=== PATIENT | female | born 2000 | race Hispanic/Latino ===

== ENCOUNTER 2024-12-03 02:50 | Inpatient (IN) | payer SELFPAY ==
[2024-12-03] VITALS (72 sets, daily range): BP systolic 109–146; BP diastolic 55–89; PULSE 72–96; RESP 16–18; TEMP 36.2–36.9; O2SAT 88–98; BMI 36.1
--- OUTSIDE RECORDS SUMMARY | 2024-12-03 02:58 | XMS RPT_ITS | CCD ---
Author Organization [facility] Care Team Providers Care Interior Design Instructor Name Role Phone Unavailable Primary Care Provider CELIA Briseno Attending Unavailable JACKIE BELTRÁN Referring Unavailable PLOTTS, SHAKILA Referring Unavailable JACQUELYN STEWART Attending Unavailable PLOTTS, SHAKILA Referring Unavailable PLOTTS, SHAKILA Referring Unavailable RUBÉNCELIA TITUS Attending Unavailable SUSAN, JACKIE Attending Unavailable NELUZ HENAO Referring Unavail able PLOTTS, SHAKILA Attending Unavailable NEYBILLT LUZ LYN Attending Unavail able PLOTTS, SHAKILA Referring Unavailable PLOTTS, SHAKILA Attending Unavailable SELF Referring Unavailable JACKIE BELTRÁN Attending Unavailable RUBÉN, CELIA Attending Unavailable Medications Current Medications Medication Drug Class(es) Dates Sig (Normalized) Sig (Original) ferrous sulfate 325 mg oral tablet (11 sources) Start: 09-10-2024 End: 04-26-2025 take 1 tablet by mouth once daily ferrous sulfate 325 mg (65 mg iron) tablet Indications: Anemia complicating , second trimester (HCC) Take 1 tablet by mouth once daily. 30 tablet 2024 04/26/2025 Active Start: 09-03-2022 End: 08-27-2024 take 1 tablet by mouth once daily at breakfast ferrous sulfate 325 mg (65 mg iron) tablet Indications: Mild anemia Take 1 tablet by mouth daily with breakfast. 30 tablet 11 09/03/2022 08/27/2024 Discontinued multivitamin ( VITAMIN WITH MINERALS) 28 mg iron- 800 mcg tab (13 sources) Start: 2024 take 1 tablet by mouth once daily multivitamin ( VITAMIN WITH MINERALS) 28 mg iron- 800 mcg tab Take 1 tablet by mouth once daily. 30 tablet 11 2024 Active Start: 08-27-2024 End: 2024 take 1 tablet by mouth once daily multivitamin ( VITAMIN WITH MINERALS) 28 mg iron- 800 mcg tab Take 1 tablet by mouth once daily. 30 tablet 11 08/27/2024 2024 Discontinued Start: 08-27-2024 take 1 tablet by michela th once daily multivitamin ( VITAMIN WITH MINERALS) 28 mg iron- 800 mcg tab Take 1 tablet by mouth once daily. 30 tablet 11 08/27/2024 Active Start: 10-17-2022 End: 08-27-2024 take 1 tablet by mouth once daily multivitamin ( VITAMIN WITH MINERALS) 28 mg iron- 800 mcg tab Indications: 13 weeks gestation of (HCC) Take 1 tablet by mouth once daily. 30 tablet 11 10/17/2022 08/27/2024 Discontinued Completed/Discontinued Medications Medication Drug Class(es) Dates Sig (Normalized) Sig (Original) aspirin 81 mg delayed release oral tablet (6 sources) Platelet Aggregation Inhibitor, Nonsteroidal Anti-inflammatory Drug Start: 08-27-2024 End: 09-23-2024 take 1 tablet by mouth once daily aspirin, enteric coated (ECOTRIN LOW STRENGTH) 81 mg EC tablet Indications: with uncertain dates, second trimester (HCC) Take 1 tablet by mouth once daily. 90 tablet 3 08/27/2024 09/23/2024 Discontinued (Discontinued by Patient) Ethinyl Estradiol / norgestimate (1 source) Progestin, Estrogen Start: 08-07-2023 End: 08-27-2024 take 1 tablet by mouth once daily norgestimate 0.25 mg-ethinyl estradiol 35 mcg (SPRINTEC) 0.25-35 mg-mcg per tablet Indications: Oral contraceptive use Take 1 tablet by mouth once daily. 84 tablet 3 08/07/2023 08/27/2024 Discontinued (Discontinued by Patient) ibuprofen 600 mg oral tablet (1 source) Nonsteroidal Anti-inflammatory Drug Start: 12-20-2022 End: 08-27-2024 take 1 tablet by mouth every six hours as needed ibuprofen (MOTRIN) 600 mg tablet Take 1 tablet by mouth every 6 hours as needed for pain. 90 tablet 12/20/2022 08/27/2024 Discontinued (Discontinued by Patient) Problems Active Problems Problem Classification Problem Date Documented Da te Episodic/Chronic Anxiety disorders (16 sources) Mixed anxiety and depressive disorder; Translations: [Anxiety disorder, unspecified] Onset: 08-27-2024 08-27-2024 Chronic Diabetes or abnormal glucose tolerance complicating ; childbirth; or the puerperium (14 sources) Impaired glucose tolerance in ; Translations: [Abnormal glucose complicating ] Onset: 09-23-2024 09-23-2024 Episodic Immunizations and screening for infectious disease (2 sources) Vaccination needed; Translations: [Encounter for immunization] Onset: 09-23-2024 09-23-2024 Episodic Mood disorders (1 source) Mood disorders; Translations: [Anxiety and depression] Onset: 08-27-2024 Other complications of (18 sources) Anemia in mother complicating , childbirth AND/OR puerperium; Translations: [Anemia complicating , second trimester] Onset: 09-02-2024 09-10-2024 Chronic Other complications of (1 source) Anemia complicating , third trimester; Translations: [Anemia during in third trimester (HCC)] Onset: 10-14-2024 Chronic Other complications of (1 source) Anemia complicating , second trimester; Translations: [Anemia complicating , second trimester (HCC)] Onset: 09-02-2024 Chronic Other complications of (1 source) Supervision of high risk , unspecified, third trimester; Translations: [Supervision of high risk in third trimester (HCC)] Onset: 11-11-2024 Episodic Other complications of (1 source) Supervision of high risk , unspecified, second trimester; Translations: [Encounter for supervision of high risk in second trimester, antepartum (HCC)] Onset: 10-14-2024 Episodic Other screening for suspected conditions (not mental disorders or infectious disease) (2 sources) Patient encounter status; Translations: [Encounter for screening for diabetes mellitus] Onset: 09-23-2024 09-10-2024 Episodic Residual codes; unclassified (1 source) Gestation period, 24 weeks; Translations: [24 weeks gestation of ] 08-27-2024 Episodic Residual codes; unclassified (1 source) Gestation period, 26 weeks; Translations: [26 weeks gestation of ] 09-10-2024 Episodic Residual codes; unclassified (1 source) Gestation period, 31 weeks; Translations: [31 weeks gestation of ] 09-23-2024 Episodic Residual codes; unclassified (1 source) Gestation period, 33 weeks; Translations: [33 weeks gestation of ] 10-07-2024 Episodic Residual codes; unclassified (1 source) Gestation period, 36 weeks; Translations: [36 weeks gestation of ] 2024 Episodic Residual codes; unclassified (1 source) Gestation period, 38 weeks; Translations: [38 weeks gestation of ] 11-11-2024 Episodic Residual codes; unclassified (1 source) Gestation period, 39 weeks; Translations: [39 weeks gestation of ] 11-19-2024 Episodic Residual codes; unclassified (1 source) 40 weeks gestation of ; Translations: [40 weeks gestation of (HCC)] Onset: 11-26-2024 Episodic Residual codes; unclassified (1 source) 39 weeks gestation of ; Translations: [39 weeks gestation of (HCC)] Onset: 11-19-2024 Episodic Residual codes; unclassified (1 source) 38 weeks gestation of ; Translations: [38 weeks gestation of (HCC)] Onset: 11-11-2024 Episodic Residual codes; unclassified (1 source) 36 weeks gestation of ; Translations: [36 weeks gestation of (HCC)] Onset: 2024 Episodic Residual codes; unclassified (1 source) 31 weeks gestation of ; Translations: [31 weeks gestation of (HCC)] Onset: 09-23-2024 Episodic Residual codes; unclassified (1 source) 26 weeks gestation of ; Translations: [26 weeks gestation of (HCC)] Onset: 09-10-2024 Episodic Unclassified (1 source) Care Onset: 10-07-2024 Past or Other Problems Problem Classification Problem Date Documented Da te Episodic/Chronic Administrative/social admission (20 sources) Language barrier impedes ability to use community resources; Translations: [Acculturation difficulty] Onset: 10-01-2022 08-27-2024 Episodic Early or threatened labor (13 sources) False labor; Translations: [False labor, unspecified] Onset: 12-17-2022 Resolved: 08-27-2024 08-27-2024 Episodic Other complications of (16 sources) Anemia of ; Translations: [Anemia complicating , third trimester] Onset: 09-23-2024 Resolved: 10-14-2024 09-23-2024 Chronic Other complications of (18 sources) Late entry into care; Translations: [Supervision of with insufficient care, unspecified trimester] Onset: 08-27-2024 08-27-2024 Episodic Other complications of (14 sources) Uterine size for dates discrepancy; Translations: [Uterine size-date discrepancy, second trimester] Onset: 08-27-2024 08-27-2024 Episodic Other complications of (20 sources) High risk ; Translations: [Supervision of high risk , unspecified, second trimester] Onset: 08-27-2024 08-27-2024 Episodic Other complications of (13 sources) Abdominal pain in ; Translations: [Other specified related conditions, third trimester] Onset: 12-17-2022 Resolved: 12-20-2022 12-20-2022 Episodic Other complications of (1 source) Supervision of with insufficient care, unspecified trimester; Translations: [Late care ([facility])] Onset: 08-27-2024 Episodic Other and delivery including normal (19 sources) with uncertain dates; Translations: [Encounter for supervision of normal , unspecified, second trimester] Onset: 10-01-2022 Resolved: 08-27-2024 08-27-2024 Episodic Residual codes; unclassified (13 sources) Gestation period, 40 weeks; Translations: [40 weeks gestation of ] Onset: 12-17-2022 Resolved: 12-20-2022 12-20-2022 Episodic Residual codes; unclassified (1 source) 13 weeks gestation of ; Translations: [13 weeks gestation of ([facility])] Onset: 08-27-2024 Episodic Results Test Name Value Interpretation Reference Range Facil cadencey Genaro 11-25-2024 MICHAEL Telephone (OBGYWM) MIS DOMINGUEZ ([id number]) 1 F HELENA Date Time Provider Department 11/25/24 SHAKILA MORALES During your visit today, we recorded the following information about you: Changcalista DorysMIGUEL 11/25/2024 2:53 PM Signed Ob patient is 40w3d called using an conciliator c/o 8 out 10 lower back and abdominal pain with pelvic pressure, Denies LOF, no VB. Baby is active. Discussed with Franko Morales and patient was advised to go to [facility]. Patient told nurse that she is not able to go to [facility] d/t lack of transportation and is out of town for work until tomorrow. Patient stated that she would have to call a squad and go to [facility] in [place] but wanted to wait d/t having child home w/ her and family to help. Allergies As of Date: 11/25/2024 (No Known Allergies) Date Reviewed: 11/19/2024 Reviewed by: Celia Boss MD - Fully Assessed Reason for Visit: Care [86] Prescriptions as of 11/25/2024 - ferrous sulfate 325 mg (65 mg iron) tablet Take 1 tablet by mouth once daily. - multivitamin ( VITAMIN WITH MINERALS) 28 mg iron- 800 mcg tab Take 1 tablet by mouth once daily. Problem List As Of Date 11/25/2024 Noted Resolved Language barrier [Z60.3, Z75.8] 10/01/2022 Encounter for supervision of normal first pregn*10/01/2022 08/27/2024 40 weeks gestation of [Z3A.40] 12/17/2022 12/20/2022 Abdominal pain in , third trimester [O*12/17/2022 12/20/2022 Labor, false ([place]), antepartum (HCC) *12/17/2022 08/27/2024 Late care (HCC) [O09.30] 08/27/2024 Uterine size-date discrepancy, second trimester*08/27/2024 Encounter for supervision of high risk pregnanc*08/27/2024 Anxiety and depression [F41.9, F32.A] 08/27/2024 Anemia complicating , second trimester*09/02/2024 Abnormal glucose in , antepartum (HCC)*09/23/2024 Anemia during in third trimester (HCC*09/23/2024 10/14/2024 Encounter Status:Closed by JANN GOMEZ on 11/25/[address] [facility] URINE OB DIP B/Oon 5 Glucose Ql (U) Negative Neg mg/dL [facility] Protein.monoclonal (U) [Mass/Vol] 100 mg/dL Neg [facility] URINE OB DIP B/Oon 5 Glucose Ql (U) Negative Neg mg/dL [facility] Interpretation and review of laboratory results Abnormal [facility] Protein.monoclonal (U) [Mass/Vol] 300 mg/dL Neg [facility] CBC W Auto Differential pane l (Bld)on 2024 Basophils (Bld) [#/Vol] 0.03 10*3/[facility]L [facility] Basophils/100 WBC (Bld) 0.4 % [facility] Differential cell count method Nom (Bld) Auto [facility] Eosinophils (Bld) [#/Vol] 0.08 10*3/uL [facility] Eosinophils/100 WBC (Bld) 1.2 % [facility] Erythrocyte distribution width (RBC) [Ratio] 14.1 % 11.5 - 15.0 % [facility] Hematocrit (Bld) [Volume fraction] 31.7 % Low 36.0 - 46.0 % [facility] Hemoglobin (Bld) [Mass/Vol] 10.9 g/dL Low 11.5 - 15.5 g/dL [facility] Immature granulocytes (Bld) [#/Vol] 0.07 10*3/uL [facility] Immature granulocytes/100 WBC (Bld) 1 % [facility] Interpretation and review of laboratory results Abnormal [facility] Lymphocytes (Bld) [#/Vol] 1.46 10*3/uL [facility] Lymphocytes/100 WBC (Bld) 21.3 % [facility] MCH (RBC) [Entitic mass] 28.5 pg 26.0 - 34.0 pg [facility] MCHC (RBC) [Mass/Vol] 34.4 g/dL 30.5 - 36.0 g/dL [facility] MCV (RBC) [Entitic vol] 82.8 fL 80.0 - 100.0 fL [facility] Monocytes (Bld) [#/Vol] 0.54 10*3/uL [facility] Monocytes/100 WBC (Bld) 7.9 % [facility] Neutrophils (Bld) [#/Vol] 4.68 10*3/uL [facility] Neutrophils/100 WBC (Bld) 68.2 % [facility] Nucleated RBC (Bld) [#/Vol] NINF [facility] Nucleated RBC/100 WBC (Bld) [Ratio] 0 % /100 WBC [facility] Platelet mean volume (Bld) [Entitic vol] 10.2 fL 9.0 - 12.7 fL [facility] Platelets (Bld) [#/Vol] 195 10*3/uL [facility] RBC (Bld) [#/Vol] 3.83 10*6/uL Low 3.90 - 5.20 m/uL [facility] WBC (Bld) [#/Vol] 6.86 10*3/uL [facility] Basophils (Bld) [#/Vol] 0.03 10*3/uL Normal <0.11 [facility] Comment on above: Order Comment: Speci men Type: BLOOD SPECIMEN Ordering Facility: [facility] Address: [address] [place] [address] Performed By: #### 5 0190-8, 6-4 #### [facility] CLIA [id number] [address] [place] [address] [place] Basophils/100 WBC (Bld) 0.4 % Normal [facility] Comment on above: Order Comment: Speci men Type: BLOOD SPECIMEN Ordering Facility: [facility] Address: [address] [place] [address] Performed By: #### 5 0190-8, 6-4 #### [facility] CLIA [id number] [address] [place] [address] [place] Differential cell count method Nom (Bld) Auto Normal [facility] Comment on above: Order Comment: Speci men Type: BLOOD SPECIMEN Ordering Facility: [facility] Address: [address] [place] [address] Performed By: #### 5 0190-8, 2275- #### [facility] CLIA [id number] [address] [place] [address] [place] Eosinophils (Bld) [#/Vol] 0.08 10*3/uL Normal <0.46 [facility] Comment on above: Order Comment: Speci men Type: BLOOD SPECIMEN Ordering Facility: [facility] Address: [address] [place] [address] Performed By: #### 5 0190-8, 2275-07 #### [facility] CLIA [id number] [address] [place] [address] [place] Eosinophils/100 WBC (Bld) 1.2 % Normal [facility] Comment on above: Order Comment: Speci men Type: BLOOD SPECIMEN Ordering Facility: [facility] Address: [address] [place] [address] Performed By: #### 5 0190-8, 2275-07 #### [facility] CLIA [id number] [address] [place] [address] [place] Erythrocyte distribution width (RBC) [Ratio] 14.1 % Normal 11.5-15.0 [facility] Comment on above: Order Comment: Speci men Type: BLOOD SPECIMEN Ordering Facility: [facility] Address: [address] [place] [address] Performed By: #### 5 0190-8, 2275-07 #### [facility] CLIA [id number] [address] [place] [address] [place] Hematocrit (Bld) [Volume fraction] 31.7 % Low 36.0-46.0 [facility] Comment on above: Order Comment: Speci men Type: BLOOD SPECIMEN Ordering Facility: [facility] Address: [address] [place] [address] Performed By: #### 5 0190-8, 2275-07 #### [facility] CLIA [id number] [address] [place] [address] [place] Hemoglobin (Bld) [Mass/Vol] 10.9 g/dL Low 11.5-15.5 [facility] Comment on above: Order Comment: Speci men Type: BLOOD SPECIMEN Ordering Facility: [facility] Address: [address] [place] [address] Performed By: #### 5 0190-8, 2275-07 #### [facility] CLIA [id number] [address] [place] [address] [place] Immature granulocytes (Bld) [#/Vol] 0.07 10*3/uL Normal <0.10 [facility] Comment on above: Order Comment: Speci men Type: BLOOD SPECIMEN Ordering Facility: [facility] Address: [address] [place] [address] Performed By: #### 5 0190-8, 2275-07 #### [facility] CLIA [id number] [address] [place] [address] [place] Immature granulocytes/100 WBC (Bld) 1.0 % Normal [facility] Comment on above: Order Comment: Speci men Type: BLOOD SPECIMEN Ordering Facility: [facility] Address: [address] [place] [address] Performed By: #### 5 0190-8, 2275-07 #### [facility] CLIA [id number] [address] [place] [address] [place] Lymphocytes (Bld) [#/Vol] 1.46 10*3/uL Normal 1.00-4.00 [facility] Comment on above: Order Comment: Speci men Type: BLOOD SPECIMEN Ordering Facility: [facility] Address: [address] [place] [address] Performed By: #### 5 0190-8, 2275-07 #### [facility] CLIA [id number] [address] [place] [address] [place] Lymphocytes/100 WBC (Bld) 21.3 % Normal [facility] Comment on above: Order Comment: Speci men Type: BLOOD SPECIMEN Ordering Facility: [facility] Address: [address] [place] [address] Performed By: #### 5 0190-8, 2275-4 #### [facility] CLIA [id number] [address] [place] [address] [place] MCH (RBC) [Entitic mass] 28.5 pg Normal 26.0-34.0 [facility] Comment on above: Order Comment: Speci men Type: BLOOD SPECIMEN Ordering Facility: [facility] Address: [address] [place] [address] Performed By: #### 5 0190-8, 2275-07 #### [facility] CLIA [id number] [address] [place] [address] [place] MCHC (RBC) [Mass/Vol] 34.4 g/dL Normal 30.5-36.0 [facility] Comment on above: Order Comment: Speci men Type: BLOOD SPECIMEN Ordering Facility: [facility] Address: [address] [place] [address] Performed By: #### 5 0190-8, 2275-07 #### [facility] CLIA [id number] [address] [place] [address] [place] MCV (RBC) [Entitic vol] 82.8 fL Normal 80.0-100.0 [facility] Comment on above: Order Comment: Speci men Type: BLOOD SPECIMEN Ordering Facility: [facility] Address: [address] [place] [address] Performed By: #### 5 0190-8, 2275-07 #### [facility] CLIA [id number] [address] [place] [address] [place] Monocytes (Bld) [#/Vol] 0.54 10*3/uL Normal <0.87 [facility] Comment on above: Order Comment: Speci men Type: BLOOD SPECIMEN Ordering Facility: [facility] Address: [address] [place] [address] Performed By: #### 5 0190-8, 2275-4 #### [facility] CLIA [id number] [address] [place] [address] [place] Monocytes/100 WBC (Bld) 7.9 % Normal [facility] Comment on above: Order Comment: Speci men Type: BLOOD SPECIMEN Ordering Facility: [facility] Address: [address] [place] [address] Performed By: #### 5 0190-8, 2275-4 #### [facility] CLIA [id number] [address] [place] [address] [place] Neutrophils (Bld) [#/Vol] 4.68 10*3/uL Normal 1.45-7.50 [facility] Comment on above: Order Comment: Speci men Type: BLOOD SPECIMEN Ordering Facility: [facility] Address: [address] [place] [address] Performed By: #### 5 0190-8, 2275-07 #### [facility] CLIA [id number] [address] [place] [address] [place] Neutrophils/100 WBC (Bld) 68.2 % Normal [facility] Comment on above: Order Comment: Speci men Type: BLOOD SPECIMEN Ordering Facility: [facility] Address: [address] [place] [address] Performed By: #### 5 0190-8, 2275-4 #### [facility] CLIA [id number] [address] [place] [address] [place] Nucleated RBC (Bld) [#/Vol] 10*3/uL Normal <0.01 [facility] Comment on above: Order Comment: Speci men Type: BLOOD SPECIMEN Ordering Facility: [facility] Address: [address] [place] [address] Performed By: #### 5 0190-8, 2275- #### [facility] CLIA [id number] [address] [place] [address] [place] Nucleated RBC/100 WBC (Bld) [Ratio] 0.0 /[address] [facility] Comment on above: Order Comment: Speci men Type: BLOOD SPECIMEN Ordering Facility: [facility] Address: [address] [place] [address] Performed By: #### 5 0190-8, 2275-07 #### [facility] CLIA [id number] [address] [place] [address] [place] Platelet mean volume (Bld) [Entitic vol] 10.2 fL Normal 9.0-12.7 [facility] Comment on above: Order Comment: Speci men Type: BLOOD SPECIMEN Ordering Facility: [facility] Address: [address] [place] [address] Performed By: #### 5 0190-8, 2275-07 #### [facility] CLIA [id number] [address] [place] [address] [place] Platelets (Bld) [#/Vol] 195 10*3/uL Normal 150-400 [facility] Comment on above: Order Comment: Speci men Type: BLOOD SPECIMEN Ordering Facility: [facility] Address: [address] [place] [address] Performed By: #### 5 0190-8, 2275-07 #### [facility] CLIA [id number] [address] [place] [address] [place] RBC (Bld) [#/Vol] 3.83 10*6/uL Low 3.90-5.20 [facility] Comment on above: Order Comment: Speci men Type: BLOOD SPECIMEN Ordering Facility: [facility] Address: [address] [place] [address] Performed By: #### 5 0190-8, 2275-07 #### [facility] CLIA [id number] [address] [place] [address] [place] WBC (Bld) [#/Vol] 6.86 10*3/uL Normal 3.70-11.00 [facility] Comment on above: Order Comment: Speci men Type: BLOOD SPECIMEN Ordering Facility: [facility] Address: [address] [place] [address] Performed By: #### 5 0190-8, 2275-07 #### [facility] CLIA [id number] [address] [place] [address] [place] Ferritin SerPl-ncon 2024 Ferritin [Mass/Vol] 36.2 ng/mL Normal 14.7-205.1 [facility] Comment on above: Order Comment: Speci men Type: BLOOD SPECIMEN Ordering Facility: [facility] Address: [address] [place] [address] Performed By: #### 5 0190-8, 2275-07 #### [facility] CLIA [id number] [address] [place] [address] [place] Iron and Iron binding capaci panelon 2024 Iron [Mass/Vol] 78 ug/dL Normal 41-186 [facility] Comment on above: Order Comment: Speci men Type: BLOOD SPECIMEN Ordering Facility: [facility] Address: [address] [place] [address] Performed By: #### 5 0190-8, 2275-07 #### [facility] CLIA [id number] [address] [place] [address] [place] Iron binding capacity [Mass/Vol] 403 ug/dL High 232-386 [facility] Comment on above: Order Comment: Speci men Type: BLOOD SPECIMEN Ordering Facility: [facility] Address: [address] [place] [address] Performed By: #### 5 0190-8, 2276-4 #### [facility] CLIA [id number] [address] [place] [address] [place] Iron/TIBC [Molar ratio] 19.4 % Normal 15.0-57.0 [facility] Comment on above: Order Comment: Speci men Type: BLOOD SPECIMEN Ordering Facility: [facility] Address: [address] [place] [address] Performed By: #### 5 0190-8, 2275-4 #### [facility] CLIA [id number] [address] [place] [address] [place] ROUTINE, GROUP B ST REPTOCOCCUS BY PCRon 2024 ROUTINE, GROUP B STREPTOCOCCUS BY PCR Detected Abnormal [facility] Comment on above: Performed By: #### 5 0190-8, 2275- #### [facility] CLIA [id number] [address] [place] [address] [place] URINE OB DIP B/Oon Glucose Ql (U) Negative Neg mg/dL [facility] Interpretation and review of laboratory results Normal [facility] Protein.monoclonal (U) [Mass/Vol] 100 mg/dL Neg [facility] Examination level ultrasound on 10-14-2024 [facility] Study observation (narrative) [facility] GLUCOSE GESTATIONAL, 1 HOURo n 09-26-2024 Glucose 1 Hr post Unsp challenge [Mass/Vol] 132 mg/dL Normal 74-179 [facility] Comment on above: Order Comment: Speci men Type: BLOOD SPECIMEN Ordering Facility: [facility] Address: [address] [place] [address] Result Comment: [facility] Congress of Obstetricians and Gynecologists (Neftali/Chanel) guidelines state gestational diabetes mellitus is present when 2 or more of the plasma glucose concentrations meet or exceed the following levels: fastin mg/dl, 1 hr: 180 mg/dl, 2 hr: 155 mg/dl, and 3 hr: 140 mg/dl. Performed By: #### G TGST1 #### [facility] CLIA [id number] [address] [place] [address] [place] GLUCOSE GESTATIONAL, 2 HOURo n 09-26-2024 Glucose 2 Hr post Unsp challenge [Mass/Vol] 93 mg/dL Normal 74-154 [facility] Comment on above: Order Comment: Jajyay hooper Type: BLOOD SPECIMEN Ordering Facility: [facility] Address: [address] [place] [address] Result Comment: [facility] Congress of Obstetricians and Gynecologists (Lindsay/Coustan) guidelines state gestational diabetes mellitus is present when 2 or more of the plasma glucose concentrations meet or exceed the following levels: fastin mg/dl, 1 hr: 180 mg/dl, 2 hr: 155 mg/dl, and 3 hr: 140 mg/dl. Performed By: #### 5 0190-8, 2276-4 #### [facility] IA [id number] [address] [place] [address] [place] GLUCOSE GESTATIONAL, 3 HOURo n 09-26-2024 Glucose 3 Hr post Unsp challenge [Mass/Vol] 81 mg/dL Normal 74-139 [facility] Comment on above: Order Comment: Jayjay hooper Type: BLOOD SPECIMEN Ordering Facility: [facility] Address: [address] [place] [address] Result Comment: [facility] Congress of Obstetricians and Gynecologists (Lindsay/Chantelstan) guidelines state gestational diabetes mellitus is present when 2 or more of the plasma glucose concentrations meet or exceed the following levels: fastin mg/dl, 1 hr: 180 mg/dl, 2 hr: 155 mg/dl, and 3 hr: 140 mg/dl. Performed By: #### 5 0190-8, 2276-4 #### [facility] CLIA [id number] [address] [place] [address] [place] GLUCOSE GESTATIONAL, FASTING on 09-26-2024 Glucose post fast [Mass/Vol] 79 mg/dL Normal 74-94 [facility] Comment on above: Order Comment: Jayjay hooper Type: BLOOD SPECIMEN Ordering Facility: [facility] Address: [address] [place] [address] Result Comment: [facility] Congress of Obstetricians and Gynecologists (Neftail/Chanel) guidelines state gestational diabetes mellitus is present when 2 or more of the plasma glucose concentrations meet or exceed the following levels: fastin mg/dl, 1 hr: 180 mg/dl, 2 hr: 155 mg/dl, and 3 hr: 140 mg/dl. Performed By: #### 5 0190-8, 2275- #### [facility] CLIA [id number] [address] [place] [address] [place] CBC W Auto Differential pane l (Bld)on 09-23-2024 Basophils (Bld) [#/Vol] 0.03 10*3/uL Normal <0.11 [facility] Comment on above: Order Comment: Speci men Type: BLOOD SPECIMEN Ordering Facility: [facility] Address: [address] [place] [address] Performed By: #### 5 0190-8, 2275-07 #### [facility] CLIA [id number] [address] [place] [address] [place] Basophils/100 WBC (Bld) 0.4 % Normal [facility] Comment on above: Order Comment: Speci men Type: BLOOD SPECIMEN Ordering Facility: [facility] Address: [address] [place] [address] Performed By: #### 5 0190-8, 2275-07 #### [facility] CLIA [id number] [address] [place] [address] [place] Differential cell count method Nom (Bld) Auto Normal [facility] Comment on above: Order Comment: Speci men Type: BLOOD SPECIMEN Ordering Facility: [facility] Address: [address] [place] [address] Performed By: #### 5 0190-8, 2275-07 #### [facility] CLIA [id number] [address] [place] [address] [place] Eosinophils (Bld) [#/Vol] 0.14 10*3/uL Normal <0.46 [facility] Comment on above: Order Comment: Speci men Type: BLOOD SPECIMEN Ordering Facility: [facility] Address: [address] [place] [address] Performed By: #### 5 0190-8, 2275-07 #### [facility] CLIA [id number] [address] [place] [address] [place] Eosinophils/100 WBC (Bld) 1.7 % Normal [facility] Comment on above: Order Comment: Speci men Type: BLOOD SPECIMEN Ordering Facility: [facility] Address: [address] [place] [address] Performed By: #### 5 0190-8, 2275-07 #### [facility] CLIA [id number] [address] [place] [address] [place] Erythrocyte distribution width (RBC) [Ratio] 14.0 % Normal 11.5-15.0 [facility] Comment on above: Order Comment: Speci men Type: BLOOD SPECIMEN Ordering Facility: [facility] Address: [address] [place] [address] Performed By: #### 5 0190-8, 2275-07 #### [facility] CLIA [id number] [address] [place] [address] [place] Hematocrit (Bld) [Volume fraction] 30.1 % Low 36.0-46.0 [facility] Comment on above: Order Comment: Speci men Type: BLOOD SPECIMEN Ordering Facility: [facility] Address: [address] [place] [address] Performed By: #### 5 0190-8, 2275-07 #### [facility] CLIA [id number] [address] [place] [address] [place] Hemoglobin (Bld) [Mass/Vol] 10.3 g/dL Low 11.5-15.5 [facility] Comment on above: Order Comment: Speci men Type: BLOOD SPECIMEN Ordering Facility: [facility] Address: [address] [place] [address] Performed By: #### 5 0190-8, 6-4 #### [facility] CLIA [id number] [address] [place] [address] [place] Immature granulocytes (Bld) [#/Vol] 0.10 10*3/uL High <0.10 [facility] Comment on above: Order Comment: Speci men Type: BLOOD SPECIMEN Ordering Facility: [facility] Address: [address] [place] [address] Performed By: #### 5 0190-8, 2275-4 #### [facility] CLIA [id number] [address] [place] [address] [place] Immature granulocytes/100 WBC (Bld) 1.2 % Normal [facility] Comment on above: Order Comment: Speci men Type: BLOOD SPECIMEN Ordering Facility: [facility] Address: [address] [place] [address] Performed By: #### 5 0190-8, 2275-4 #### [facility] CLIA [id number] [address] [place] [address] [place] Lymphocytes (Bld) [#/Vol] 2.28 10*3/uL Normal 1.00-4.00 [facility] Comment on above: Order Comment: Speci men Type: BLOOD SPECIMEN Ordering Facility: [facility] Address: [address] [place] [address] Performed By: #### 5 0190-8, 2275-4 #### [facility] CLIA [id number] [address] [place] [address] [place] Lymphocytes/100 WBC (Bld) 28.1 % Normal [facility] Comment on above: Order Comment: Speci men Type: BLOOD SPECIMEN Ordering Facility: [facility] Address: [address] [place] [address] Performed By: #### 5 0190-8, 2275-07 #### [facility] CLIA [id number] [address] [place] [address] [place] MCH (RBC) [Entitic mass] 28.4 pg Normal 26.0-34.0 [facility] Comment on above: Order Comment: Speci men Type: BLOOD SPECIMEN Ordering Facility: [facility] Address: [address] [place] [address] Performed By: #### 5 0190-8, 2275-07 #### [facility] CLIA [id number] [address] [place] [address] [place] MCHC (RBC) [Mass/Vol] 34.2 g/dL Normal 30.5-36.0 [facility] Comment on above: Order Comment: Speci men Type: BLOOD SPECIMEN Ordering Facility: [facility] Address: [address] [place] [address] Performed By: #### 5 0190-8, 2275-07 #### [facility] CLIA [id number] [address] [place] [address] [place] MCV (RBC) [Entitic vol] 82.9 fL Normal 80.0-100.0 [facility] Comment on above: Order Comment: Speci men Type: BLOOD SPECIMEN Ordering Facility: [facility] Address: [address] [place] [address] Performed By: #### 5 0190-8, 2275-07 #### [facility] CLIA [id number] [address] [place] [address] [place] Monocytes (Bld) [#/Vol] 0.58 10*3/uL Normal <0.87 [facility] Comment on above: Order Comment: Speci men Type: BLOOD SPECIMEN Ordering Facility: [facility] Address: [address] [place] [address] Performed By: #### 5 0190-8, 2275-07 #### [facility] CLIA [id number] [address] [place] [address] [place] Monocytes/100 WBC (Bld) 7.2 % Normal [facility] Comment on above: Order Comment: Speci men Type: BLOOD SPECIMEN Ordering Facility: [facility] Address: [address] [place] [address] Performed By: #### 5 0190-8, 2275-4 #### [facility] CLIA [id number] [address] [place] [address] [place] Neutrophils (Bld) [#/Vol] 4.97 10*3/uL Normal 1.45-7.50 [facility] Comment on above: Order Comment: Speci men Type: BLOOD SPECIMEN Ordering Facility: [facility] Address: [address] [place] [address] Performed By: #### 5 0190-8, 2275-4 #### [facility] CLIA [id number] [address] [place] [address] [place] Neutrophils/100 WBC (Bld) 61.4 % Normal [facility] Comment on above: Order Comment: Speci men Type: BLOOD SPECIMEN Ordering Facility: [facility] Address: [address] [place] [address] Performed By: #### 5 0190-8, 2275-4 #### [facility] CLIA [id number] [address] [place] [address] [place] Nucleated RBC (Bld) [#/Vol] 10*3/uL Normal <0.01 [facility] Comment on above: Order Comment: Speci men Type: BLOOD SPECIMEN Ordering Facility: [facility] Address: [address] [place] [address] Performed By: #### 5 0190-8, 2275-4 #### [facility] CLIA [id number] [address] [place] [address] [place] Nucleated RBC/100 WBC (Bld) [Ratio] 0.0 /[address] [facility] Comment on above: Order Comment: Speci men Type: BLOOD SPECIMEN Ordering Facility: [facility] Address: [address] [place] [address] Performed By: #### 5 0190-8, 2275-4 #### [facility] CLIA [id number] [address] [place] [address] [place] Platelet mean volume (Bld) [Entitic vol] 10.1 fL Normal 9.0-12.7 [facility] Comment on above: Order Comment: Speci men Type: BLOOD SPECIMEN Ordering Facility: [facility] Address: [address] [place] [address] Performed By: #### 5 0190-8, 2275-4 #### [facility] CLIA [id number] [address] [place] [address] [place] Platelets (Bld) [#/Vol] 214 10*3/uL Normal 150-400 [facility] Comment on above: Order Comment: Speci men Type: BLOOD SPECIMEN Ordering Facility: [facility] Address: [address] [place] [address] Performed By: #### 5 0190-8, 4 #### [facility] CLIA [id number] [address] [place] [address] [place] RBC (Bld) [#/Vol] 3.63 10*6/uL Low 3.90-5.20 [facility] Comment on above: Order Comment: Speci men Type: BLOOD SPECIMEN Ordering Facility: [facility] Address: [address] [place] [address] Performed By: #### 5 0190-8, 2275-4 #### [facility] CLIA [id number] [address] [place] [address] [place] WBC (Bld) [#/Vol] 8.10 10*3/uL Normal 3.70-11.00 [facility] Comment on above: Order Comment: Speci men Type: BLOOD SPECIMEN Ordering Facility: [facility] Address: [address] [place] [address] Performed By: #### 5 0190-8, 2276-4 #### [facility] CLIA [id number] [address] [place] [address] [place] Ferritin SerPl-mCncon 2024 Ferritin [Mass/Vol] 39.2 ng/mL Normal 14.7-205.1 [facility] Comment on above: Order Comment: Speci men Type: BLOOD SPECIMEN Ordering Facility: [facility] Address: [address] [place] [address] Performed By: #### 5 0190-8, 2276-4 #### [facility] CLIA [id number] [address] [place] [address] [place] GESTATIONAL GLUCOSE SCREEN, 1-HOUR, 50 GRAM, NON-FASTINGon 09-23-2024 Glucose [Mass/Vol] 143 mg/dL High 74-134 [facility] Comment on above: Order Comment: Speci men Type: BLOOD SPECIMEN Ordering Facility: [facility] Address: [address] [place] [address] Result Comment: [facility] Congress of Obstetricians and Gynecologists (Neftali/Chanel) guidelines state a gestational diabetes mellitus positive screen is made, in women not previously diagnosed with overt diabetes, when the 1 hr plasma glucose level is equal to or above 140 mg/dL. [facility] [employer] recommends a 135 mg/dL cutoff. Performed By: #### G LTGST #### [facility] CLIA [id number] [address] [place] [address] [place] Iron and Iron binding capaci ty panelon 09-23-2024 Iron [Mass/Vol] 59 ug/dL Normal 41-186 [facility] Comment on above: Order Comment: Speci men Type: BLOOD SPECIMEN Ordering Facility: [facility] Address: [address] [place] [address] Performed By: #### 5 0190-8, 2276-4 #### [facility] CLIA [id number] [address] [place] [address] [place] Iron binding capacity [Mass/Vol] 399 ug/dL High 232-386 [facility] Comment on above: Order Comment: Jayjay hooper Type: BLOOD SPECIMEN Ordering Facility: [facility] Address: [address] [place] [address] Performed By: #### 5 0190-8, 2276-4 #### [facility] CLIA [id number] [address] [place] [address] [place] Iron/TIBC [Molar ratio] 14.8 % Low 15.0-57.0 [facility] Comment on above: Order Comment: Jayjay hooper Type: BLOOD SPECIMEN Ordering Facility: [facility] Address: [address] [place] [address] Performed By: #### 5 0190-8, 2276-4 #### [facility] CLIA [id number] [address] [place] [address] [place] Reagin and Treponema pallidu m IgG and IgM [Interp]on 09-23-2024 T. pallidum IgG+IgM IA Ql (S) Non-Reactive Normal Nonreactive [facility] Comment on above: Order Comment: Jayjay hooper Type: BLOOD SPECIMEN Ordering Facility: [facility] Address: [address] [place] [address] Performed By: #### 7 3752-8 #### [facility] CLIA [id number] [address] [place] [address] [place] Reagin+T pallidum IgG+IgM Se rPl-Impon 09-23-2024 Reagin and Treponema pallidum IgG and IgM [Interp] Cannot exclude recent Treponemal infection if specimen collected within 7-10 days after appearance of suspect lesions or 2-3 weeks after an exposure. Clinical correlation is required. Normal [facility] Comment on above: Order Comment: Speci men Type: BLOOD SPECIMEN Ordering Facility: [facility] Address: [address] [place] [address] Performed By: #### 7 3752-8 #### [facility] CLIA [id number] [address] [place] [address] [place] C. trachomatis+N. gonorrhoea e DNA YANCY+probe Ql (Unsp spec)on 08-27-2024 C. trachomatis rRNA YANCY+probe Ql (Unsp spec) Not detected Normal Not detected [facility] Comment on above: Order Comment: Speci men Type: SWAB Ordering Facility: [facility] Address: [address] [place] [address] Performed By: #### T RVAMP, 53756-1 #### [facility] CLIA [id number] [address] [place] [address] [place] N. gonorrhoeae rRNA YANCY+probe Ql (Unsp spec) Not detected Normal Not detected [facility] Comment on above: Order Comment: Speci men Type: SWAB Ordering Facility: [facility] Address: [address] [place] [address] Performed By: #### T RVAMP, 32979-2 #### [facility] CLIA [id number] [address] [place] [address] [place] CBC W Auto Differential pane l (Bld)on 08-27-2024 Basophils (Bld) [#/Vol] 0.03 10*3/uL Normal <0.11 [facility] Comment on above: Order Comment: Speci men Type: BLOOD SPECIMEN Ordering Facility: [facility] Address: [address] [place] [address] Performed By: #### 5 0190-8, 2276-4 #### [facility] CLIA [id number] [address] [place] [address] [place] Basophils/100 WBC (Bld) 0.4 % Normal [facility] Comment on above: Order Comment: Speci men Type: BLOOD SPECIMEN Ordering Facility: [facility] Address: [address] [place] [address] Performed By: #### 5 0190-8, 2275- #### [facility] CLIA [id number] [address] [place] [address] [place] Differential cell count method Nom (Bld) Auto Normal [facility] Comment on above: Order Comment: Speci men Type: BLOOD SPECIMEN Ordering Facility: [facility] Address: [address] [place] [address] Performed By: #### 5 0190-8, 2275-07 #### [facility] CLIA [id number] [address] [place] [address] [place] Eosinophils (Bld) [#/Vol] 0.07 10*3/uL Normal <0.46 [facility] Comment on above: Order Comment: Speci men Type: BLOOD SPECIMEN Ordering Facility: [facility] Address: [address] [place] [address] Performed By: #### 5 0190-8, 2275-07 #### [facility] CLIA [id number] [address] [place] [address] [place] Eosinophils/100 WBC (Bld) 1.0 % Normal [facility] Comment on above: Order Comment: Speci men Type: BLOOD SPECIMEN Ordering Facility: [facility] Address: [address] [place] [address] Performed By: #### 5 0190-8, 2275-07 #### [facility] CLIA [id number] [address] [place] [address] [place] Erythrocyte distribution width (RBC) [Ratio] 14.0 % Normal 11.5-15.0 [facility] Comment on above: Order Comment: Speci men Type: BLOOD SPECIMEN Ordering Facility: [facility] Address: [address] [place] [address] Performed By: #### 5 0190-8, 2275-07 #### [facility] CLIA [id number] [address] [place], [place] [id number] [place] Hematocrit (Bld) [Volume fraction] 32.2 % Low 36.0-46.0 [facility] Comment on above: Order Comment: Speci men Type: BLOOD SPECIMEN Ordering Facility: [facility] Address: [address] [place] [address] Performed By: #### 5 0190-8, 2275-07 #### [facility] CLIA [id number] [address] [place] [address] [place] Hemoglobin (Bld) [Mass/Vol] 10.7 g/dL Low 11.5-15.5 [facility] Comment on above: Order Comment: Speci men Type: BLOOD SPECIMEN Ordering Facility: [facility] Address: [address] [place] [address] Performed By: #### 5 0190-8, 2275-07 #### [facility] CLIA [id number] [address] [place] [address] [place] Immature granulocytes (Bld) [#/Vol] 0.10 10*3/uL High <0.10 [facility] Comment on above: Order Comment: Speci men Type: BLOOD SPECIMEN Ordering Facility: [facility] Address: [address] [place] [address] Performed By: #### 5 0190-8, 2275-07 #### [facility] CLIA [id number] [address] [place] [address] [place] Immature granulocytes/100 WBC (Bld) 1.5 % Normal [facility] Comment on above: Order Comment: Speci men Type: BLOOD SPECIMEN Ordering Facility: [facility] Address: [address] [place] [address] Performed By: #### 5 0190-8, 2275-07 #### [facility] CLIA [id number] [address] [place], [place] [address] [place] Lymphocytes (Bld) [#/Vol] 1.53 10*3/uL Normal 1.00-4.00 [facility] Comment on above: Order Comment: Speci men Type: BLOOD SPECIMEN Ordering Facility: [facility] Address: [address] [place] [address] Performed By: #### 5 0190-8, 2275- #### [facility] CLIA [id number] [address] [place] [address] [place] Lymphocytes/100 WBC (Bld) 22.7 % Normal [facility] Comment on above: Order Comment: Speci men Type: BLOOD SPECIMEN Ordering Facility: [facility] Address: [address] [place] [address] Performed By: #### 5 0190-8, 2275-07 #### [facility] CLIA [id number] [address] [place] [address] [place] MCH (RBC) [Entitic mass] 28.0 pg Normal 26.0-34.0 [facility] Comment on above: Order Comment: Speci men Type: BLOOD SPECIMEN Ordering Facility: [facility] Address: [address] [place] [address] Performed By: #### 5 0190-8, 2275-07 #### [facility] CLIA [id number] [address] [place] [address] [place] MCHC (RBC) [Mass/Vol] 33.2 g/dL Normal 30.5-36.0 [facility] Comment on above: Order Comment: Speci men Type: BLOOD SPECIMEN Ordering Facility: [facility] Address: [address] [place] [address] Performed By: #### 5 0190-8, 2275-07 #### [facility] CLIA [id number] [address] [place] [address] [place] MCV (RBC) [Entitic vol] 84.3 fL Normal 80.0-100.0 [facility] Comment on above: Order Comment: Speci men Type: BLOOD SPECIMEN Ordering Facility: [facility] Address: [address] [place] [address] Performed By: #### 5 0190-8, 2275-07 #### [facility] CLIA [id number] [address] [place] [address] [place] Monocytes (Bld) [#/Vol] 0.65 10*3/uL Normal <0.87 [facility] Comment on above: Order Comment: Speci men Type: BLOOD SPECIMEN Ordering Facility: [facility] Address: [address] [place] [address] Performed By: #### 5 0190-8, 2275-07 #### [facility] CLIA [id number] [address] [place] [address] [place] Monocytes/100 WBC (Bld) 9.6 % Normal [facility] Comment on above: Order Comment: Speci men Type: BLOOD SPECIMEN Ordering Facility: [facility] Address: [address] [place] [address] Performed By: #### 5 0190-8, 2275-07 #### [facility] CLIA [id number] [address] [place] [address] [place] Neutrophils (Bld) [#/Vol] 4.37 10*3/uL Normal 1.45-7.50 [facility] Comment on above: Order Comment: Speci men Type: BLOOD SPECIMEN Ordering Facility: [facility] Address: [address] [place] [address] Performed By: #### 5 0190-8, 2275-07 #### [facility] CLIA [id number] [address] [place] [address] [place] Neutrophils/100 WBC (Bld) 64.8 % Normal [facility] Comment on above: Order Comment: Speci men Type: BLOOD SPECIMEN Ordering Facility: [facility] Address: [address] [place] [address] Performed By: #### 5 0190-8, 2275- #### [facility] CLIA [id number] [address] [place] [address] [place] Nucleated RBC (Bld) [#/Vol] 10*3/uL Normal <0.01 [facility] Comment on above: Order Comment: Speci men Type: BLOOD SPECIMEN Ordering Facility: [facility] Address: [address] [place] [address] Performed By: #### 5 0190-8, 2275-07 #### [facility] CLIA [id number] [address] [place] [address] [place] Nucleated RBC/100 WBC (Bld) [Ratio] 0.0 /[address] [facility] Comment on above: Order Comment: Speci men Type: BLOOD SPECIMEN Ordering Facility: [facility] Address: [address] [place] [address] Performed By: #### 5 0190-8, 2275-07 #### [facility] CLIA [id number] [address] [place] [address] [place] Platelet mean volume (Bld) [Entitic vol] 9.9 fL Normal 9.0-12.7 [facility] Comment on above: Order Comment: Speci men Type: BLOOD SPECIMEN Ordering Facility: [facility] Address: [address] [place] [address] Performed By: #### 5 0190-8, 2275-07 #### [facility] CLIA [id number] [address] [place] [address] [place] Platelets (Bld) [#/Vol] 230 10*3/uL Normal 150-400 [facility] Comment on above: Order Comment: Speci men Type: BLOOD SPECIMEN Ordering Facility: [facility] Address: [address] [place] [address] Performed By: #### 5 0190-8, [id number] #### [facility] CLIA [id number] [address] [place] [address] [place] RBC (Bld) [#/Vol] 3.82 10*6/uL Low 3.90-5.20 [facility] Comment on above: Order Comment: Speci men Type: BLOOD SPECIMEN Ordering Facility: [facility] Address: [address] [place] [address] Performed By: #### 5 0190-8, 2275- #### [facility] CLIA [id number] [address] [place] [address] [place] WBC (Bld) [#/Vol] 6.75 10*3/uL Normal 3.70-11.00 [facility] Comment on above: Order Comment: Speci men Type: BLOOD SPECIMEN Ordering Facility: [facility] Address: [address] [place] [address] Performed By: #### 5 0190-8, 2275- #### [facility] CLIA [id number] [address] [place] [address] [place] Ferritin SerPl-mCncon 2024 Ferritin [Mass/Vol] 38.7 ng/mL Normal 14.7-205.1 [facility] Comment on above: Order Comment: Speci men Type: BLOOD SPECIMEN Ordering Facility: [facility] Address: [address] [place] [address] Performed By: #### 5 0190-8, 2275-07 #### [facility] CLIA [id number] [address] [place] [address] [place] HBV surface Ag Ser Qlon 05-0 HBV surface Ag Ql (S) Negative Normal Negative [facility] Comment on above: Order Comment: Speci men Type: BLOOD SPECIMEN Ordering Facility: [facility] Address: [address] [place] [address] Performed By: #### 5 0190-8, 2275-4 #### [facility] CLIA [id number] [address] [place] [address] [place] HCV Ab Ser Qlon 08-27-2024 HCV Ab Ql (S) Negative Normal Negative [facility] Comment on above: Order Comment: Speci men Type: BLOOD SPECIMEN Ordering Facility: [facility] Address: [address] [place] [address] Result Comment: The result suggests no evidence of infection with Hepatitis C virus. Should recent infection be suspected, repeat testing may be considered 4-6 weeks after this draw. Performed By: #### 5 0190-8, 6-4 #### [facility] CLIA [id number] [address] [place] [address] [place] HIV 1+2 Ab IA Qlon HIV 1 and 2 Ab IA.rapid Nom (S/P/Bld) Normal [facility] Comment on above: Order Comment: Speci men Type: BLOOD SPECIMEN Ordering Facility: [facility] Address: [address] [place] [address] Result Comment: Test not indicated. Performed By: #### 5 0190-8, 6-4 #### [facility] CLIA [id number] [address] [place] [address] [place] HIV 1+2 Ab+HIV1 p24 Ag IA Ql Non-Reactive Normal Nonreactive [facility] Comment on above: Order Comment: Speci men Type: BLOOD SPECIMEN Ordering Facility: [facility] Address: [address] [place] [address] Performed By: #### 5 0190-8, 6-4 #### [facility] CLIA [id number] [address] [place] [address] [place] HIV immunoassay testing algorithm interpretation (S/P/Bld) [Interp] Normal [facility] Comment on above: Order Comment: Speci men Type: BLOOD SPECIMEN Ordering Facility: [facility] Address: [address], [place] [address] Result Comment: No e vidence of HIV-1 or HIV-2 infection. Should recent infection be suspected, repeat testing may be considered 2-3 weeks after this draw. [place] Rev. Code 3701.243(E): This information has been disclosed to you from confidential records protected from disclosure by state law. You shall make no further disclosure of this information without the specific, written, and informed release of the individual to whom it pertains or as otherwise permitted by state law. A general authorization for the release of medical or other information is not sufficient for the purpose of the release of HIV test results or diagnoses. Performed By: #### 5 0190-8, 6- #### [facility] CLIA [id number] [address] [place] [address] [place] HbA1c (Bld)on 08-27-2024 Average glucose Estimated from glycated hemoglobin (Bld) [Mass/Vol] 91 mg/dL Normal [facility] Comment on above: Order Comment: Singhi men Type: BLOOD SPECIMEN Ordering Facility: [facility] Address: [address] [place] [address] Result Comment: eAG: (Estimated average glucose) is a calculated value from HgbA1c and is sales donor recruitment representative of the average blood glucose level in the last 2-3 month period. Performed By: #### 5 0190-8, 2275-07 #### [facility] CLIA [id number] [address] [place] [address] [place] HbA1c (Bld) [Mass fraction] 4.8 % Normal 4.3-5.6 [facility] Comment on above: Order Comment: Singhi men Type: BLOOD SPECIMEN Ordering Facility: [facility] Address: [address] [place] [address] Result Comment: [place] Diabetes Association guidelines indicate that patients with HgbA1c in the range 5.7-6.4% are at increased risk for development of diabetes, and intervention by lifestyle modification may be beneficial. HgbA1c greater or equal to 6.5% is considered diagnostic of diabetes. Performed By: #### 5 0190-8, 2275- #### [facility] CLIA [id number] [address] [place] [address] [place] Iron and Iron binding capaci ty panelon 08-27-2024 Iron [Mass/Vol] 69 ug/dL Normal 41-186 [facility] Comment on above: Order Comment: Jayjay hooper Type: BLOOD SPECIMEN Ordering Facility: [facility] Address: [address] [place] [address] Performed By: #### 5 0190-8, 2276-4 #### [facility] CLIA [id number] [address] [place] [address] [place] Iron binding capacity [Mass/Vol] 462 ug/dL High 232-386 [facility] Comment on above: Order Comment: Jayjay hooper Type: BLOOD SPECIMEN Ordering Facility: [facility] Address: [address] [place] [address] Performed By: #### 5 0190-8, 6-4 #### [facility] CLIA [id number] [address] [place] [address] [place] Iron/TIBC [Molar ratio] 14.9 % Low 15.0-57.0 [facility] Comment on above: Order Comment: Jayjay hooper Type: BLOOD SPECIMEN Ordering Facility: [facility] Address: [address] [place] [address] Performed By: #### 5 0190-8, 2276-4 #### [facility] CLIA [id number] [address] [place] [address] [place] RUBELLA IGG ANTIBODYon 08-27 RUBELLA IGG AB, QUAL Negative Abnormal Positive [facility] Comment on above: Order Comment: Jayjay hooper Type: BLOOD SPECIMEN Ordering Facility: [facility] Address: [address] [place] [address] Result Comment: The result suggests no history of Rubella vaccination or exposure to Rubella virus, however, some individuals with past history of Rubella vaccination may test negative using this test as immunity to Rubella virus wanes over time after vaccination. Please correlate with vaccination history if applicable. Performed By: #### R UBIGG #### [facility] CLIA [id number] [address] [place] [address] [place] Reagin and Treponema pallidu m IgG and IgM [Interp]on 08-27-2024 T. pallidum IgG+IgM IA Ql (S) Non-Reactive Normal Nonreactive [facility] Comment on above: Order Comment: Speci men Type: BLOOD SPECIMEN Ordering Facility: [facility] Address: [address] [place] [address] Performed By: #### 5 0190-8, 6-4 #### [facility] CLIA [id number] [address] [place] [address] [place] Reagin+T pallidum IgG+IgM Se rPl-Impon 08-27-2024 Reagin and Treponema pallidum IgG and IgM [Interp] Cannot exclude recent Treponemal infection if specimen collected within 7-10 days after appearance of suspect lesions or 2-3 weeks after an exposure. Clinical correlation is required. Normal [facility] Comment on above: Order Comment: Speci men Type: BLOOD SPECIMEN Ordering Facility: [facility] Address: [address] [place] [address] Performed By: #### 5 0190-8, 6-4 #### [facility] CLIA [id number] [address] [place] [address] [place] TRICHOMONAS VAGINALIS NAATon 08-27-2024 T. vaginalis DNA YANCY+probe Ql (Unsp spec) Not detected Normal Not detected [facility] Comment on above: Order Comment: Speci men Type: SWAB Ordering Facility: [facility] Address: [address] [place] [address] Performed By: #### T RVAMP, 64379-4 #### [facility] CLIA [id number] [address] [place] [address] [place] TYPE + SCREEN PRENATALon 05- 01-[address] [facility] Comment on above: Order Comment: Speci men Type: BLOOD SPECIMEN Ordering Facility: [facility] Address: [address] [place] [address] Performed By: #### 5 0190-8, 2276-4 #### [facility] CLIA [id number] [address] [place] [address] [place] Rh Nom (Bld) Positive Normal [facility] Comment on above: Order Comment: Speci men Type: BLOOD SPECIMEN Ordering Facility: [facility] Address: [address] [place] [address] Performed By: #### 5 0190-8, 6-4 #### [facility] CLIA [id number] [address] [place] [address] [place] TYPE AND SCREEN EXPIRATION 08/30/2024 23:[address] [facility] Comment on above: Order Comment: Speci men Type: BLOOD SPECIMEN Ordering Facility: [facility] Address: [address] [place] [address] Performed By: #### 5 0190-8, 6-4 #### [facility] CLIA [id number] [address] [place] [address] [place] Vital Signs Date Time Vital Sign Value Performing Clinician Luis clarke 11-19-2024 09:26-0400 Body mass index (BMI) [Ratio] 34.96 kg/m2 Celia Boss MD Work Phone: [facility] 11-19-2024 09:26-0400 Body weight 83.92 kg Celia Bsos MD Work Phone: [facility] 11-19-2024 09:26-0400 Diastolic blood pressure 64 mm[Hg] Celia Boss MD Work Phone: [facility] 11-19-2024 09:26-0400 Systolic blood pressure 118 mm[Hg] Celia Boss MD Work Phone: [facility] 11-11-2024 10:24-0400 Body mass index (BMI) [Ratio] 34.31 kg/m2 Celia Boss MD Work Phone: [facility] 11-11-2024 10:24-0400 Body weight 82.37 kg Celia Boss MD Work Phone: [facility] 11-11-2024 10:24-0400 Diastolic blood pressure 70 mm[Hg] Celia Boss MD Work Phone: [facility] 11-11-2024 10:24-0400 Systolic blood pressure 130 mm[Hg] Celia Boss MD Work Phone: [facility] 2024 10:42-0400 Body mass index (BMI) [Ratio] 33.44 kg/m2 Jackie Beltrán COOK MESS.CNM Work Phone: [facility] 2024 10:42-0400 Body weight 80.29 kg Jackie Beltrán [employer]CNM Work Phone: [facility] 2024 10:42-0400 Diastolic blood pressure 66 mm[Hg] Jackie Beltrán [employer]OOK MESS.CNM Work Phone: [facility] 2024 10:42-0400 Systolic blood pressure 112 mm[Hg] Jackie Beltrán [employer] MESS.CNM Work Phone: [facility] 10-14-2024 10:16-0400 Body mass index (BMI) [Ratio] 33.44 kg/m2 Jacquelyn Stewart MD Work Phone: [facility] 10-14-2024 10:16-0400 Body weight 80.29 kg Jacquelyn Stewart MD Work Phone: [facility] 10-14-2024 10:16-0400 Diastolic blood pressure 58 mm[Hg] Jacquelyn Stewart MD Work Phone: [facility] 10-14-2024 10:16-0400 Systolic blood pressure 104 mm[Hg] Jacquelyn Stewart MD Work Phone: [facility] 10-07-2024 09:04-0400 Body mass index (BMI) [Ratio] 32.88 kg/m2 Celia Boss MD Work Phone: [facility] 10-07-2024 09:04-0400 Body weight 78.93 kg Celia Boss MD Work Phone: [facility] 10-07-2024 09:04-0400 Diastolic blood pressure 72 mm[Hg] Celia Boss MD Work Phone: [facility] 10-07-2024 09:04-0400 Systolic blood pressure 114 mm[Hg] Celia Boss MD Work Phone: [facility] 09-23-2024 08:02-0400 Body mass index (BMI) [Ratio] 32.73 kg/m2 Shakila Plotts COOK MESS.CNM Work Phone: [facility] 09-23-2024 08:02-0400 Body weight 78.56 kg Shakila Wallerts [employer]OOK MESS.CNM Work Phone: [facility] 09-23-2024 08:02-0400 Diastolic blood pressure 64 mm[Hg] Shakila Plotts COOK MESS.CNM Work Phone: [facility] 09-23-2024 08:02-0400 Systolic blood pressure 110 mm[Hg] Shakila Plotts COOK MESS.CNM Work Phone: [facility] 09-10-2024 08:24-0400 Body mass index (BMI) [Ratio] 32.5 kg/m2 Luz Lyn MD Work Phone: [facility] 09-10-2024 08:24-0400 Body weight 78.02 kg Luz Lyn MD Work Phone: [facility] 09-10-2024 08:24-0400 Diastolic blood pressure 60 mm[Hg] Luz Lyn MD Work Phone: [facility] 09-10-2024 08:24-0400 Systolic blood pressure 108 mm[Hg] Luz Lyn MD Work Phone: [facility] 08-27-2024 13:20-0400 Body height 154.9 cm Shakila Wallerlisset COOK MESS.CNM Work Phone: [facility] 08-27-2024 13:20-0400 Body mass index (BMI) [Ratio] 31.55 kg/m2 Shakila Wallerts COOK MESS.CNM Work Phone: [facility] 08-27-2024 13:20-0400 Body weight 75.75 kg Shakila Christinlisset COOK MESS.CNM Work Phone: [facility] 08-27-2024 13:20-0400 Diastolic blood pressure 68 mm[Hg] Shakila Wallerts COOK MESS.CNM Work Phone: [facility] 08-27-2024 13:20-0400 Systolic blood pressure 120 mm[Hg] Shakila Morales COOK MESS.CNM Work Phone: [facility] Encounters Encounter Date Encounter Type Care Provider Facility Start: 11-26-2024 End: 11-26-2024 ambulatory SELF Facility:[facility] Start: 11-25-2024 End: 11-25-2024 Telephone encounter Shakila Wallerlisset COOK MESS.CNM Work Phone: [facility] Comment on above: Care Start: 11-19-2024 End: 11-19-2024 Office outpatient visit 15 minutes Celia Boss MD Work Phone: [facility] Comment on above: Supervision of high risk in third trimester (HCC) (Primary Dx); Anemia during in third trimester (HCC); 39 weeks gestation of (HCC) Start: 11-19-2024 End: 11-19-2024 ambulatory CELIA BOSS Facility:[facility] Start: 11-11-2024 End: 11-11-2024 Office outpatient visit 15 minutes Celia Boss MD Work Phone: OB/Gynecology Comment on above: 38 weeks gestation o f (HCC) (Primary Dx); Supervision of high risk in third trimester (HCC); Language barrier; Anemia during in third trimester (HCC) Start: 11-11-2024 End: 11-11-2024 ambulatory CELIA BOSS Facility:[facility] Start: 2024 End: 2024 Patient encounter procedure Jackie Beltrán ANDERSM Work Phone: OB/Gynecology Comment on above: Supervision of high risk in third trimester (HCC) (Primary Dx); 36 weeks gestation of (HCC); Language barrier; Anemia during in third trimester (HCC); Late care (HCC); Anxiety and depression; Anemia complicating , second trimester (HCC) Start: 2024 End: 2024 ambulatory JACKIE BELTRÁN Facility:[facility] Start: 10-14-2024 End: 10-14-2024 Patient encounter procedure Jacquelyn Stewart MD Work Phone: OB/Gynecology Comment on above: Supervision of high risk in third trimester (HCC) (Primary Dx); Language barrier; Anemia during in third trimester (HCC); Encounter for supervision of high risk in second trimester, antepartum (HCC) Start: 10-14-2024 End: 10-14-2024 Patient encounter procedure [employer] [facility] Comment on above: Late care ( HCC); Anemia complicating , second trimester (HCC) Start: 10-14-2024 End: 10-14-2024 ambulatory SHAKILA MORALES Facility:[facility] Start: 10-07-2024 End: 10-07-2024 Office outpatient visit 15 minutes Celia Boss MD Work Phone: OB/Gynecology Comment on above: 33 weeks gestation o f (HCC) (Primary Dx); Encounter for supervision of normal first in third trimester (HCC); Language barrier Start: 10-07-2024 End: 10-07-2024 ambulatory CELIA BOSS Facility:[facility] Start: 09-28-2024 End: 11-28-2024 Follow-up encounter Jcaquelyn Stewart MD Work Phone: OB/Gynecology Start: 09-26-2024 End: 09-26-2024 ambulatory LUZ LYN Facility:[facility] Start: 09-23-2024 End: 11-23-2024 Follow-up encounter Luz Lyn MD Work Phone: OB/Gynecology Start: 09-23-2024 End: 09-23-2024 Patient encounter procedure Shakila Morales COOK MESS.CNM Work Phone: OB/Gynecology Comment on above: 31 weeks gestation o f (HCC) (Primary Dx); Language barrier; Late care ([facility]); Anemia complicating , second trimester ([facility]); Need for vaccination Start: 09-23-2024 End: 09-23-2024 ambulatory SHAKILA [facility] Facility:[facility] Start: 09-16-2024 End: 09-16-2024 [facility] Facility:[facility] Start: 09-10-2024 End: 09-10-2024 Patient encounter procedure Luz Lyn MD Work Phone: OB/Gynecology Comment on above: Encounter for superv ision of high risk in second trimester, antepartum (HCC) (Primary Dx); Anemia complicating , second trimester ([facility]); Screening for diabetes mellitus; Encounter for supervision of other normal in second trimester ([facility]); 26 weeks gestation of ([facility]) Start: 09-10-2024 End: 09-10-2024 ambulatory LUZ LYN Facility:[facility] Start: 08-28-2024 End: 2024 Follow-up encounter Shakila Morales APRN.CNM Work Phone: OB/Gynecology Start: 08-27-2024 End: 08-27-2024 [facility]ulatory [facility] Facility:[facility] Start: 08-27-2024 End: 08-27-2024 Patient encounter procedure Shakila Morales APRN.JUDITHM Work Phone: OB/Gynecology Comment on above: with uncer tain dates, second trimester (HCC) (Primary Dx); Late care ([facility]); 24 weeks gestation of ([facility]); Uterine size-date discrepancy, second trimester (HCC); Language barrier; Encounter for supervision of high risk in second trimester, antepartum (HCC); Anxiety and depression Procedures Date Procedure Procedure Detail Performing Clinician Start: 11-19-2024 Urnls dip stick/tabl et rgnt non-auto w/o micrscp Celia Boss MD Work Phone: Start: 11-11-2024 Urnls dip stick/tabl et rgnt non-auto w/o micrscp Celia Boss MD Work Phone: Start: 2024 Urnls dip stick/tabl et rgnt non-auto w/o micrscp Jackie Beltrán COOK MESS.CNM Work Phone: Start: 10-14-2024 Us preg uterus after 1st trimest 04/29 gestation Shakila Morales COOK MESS.CNM Work Phone: Start: 08-27-2024 Antibody screen RAMBO BOSS Comment on above: Order Comment: Speci men Type: BLOOD SPECIMEN Ordering Facility: [facility] Address: [address] [place] [address] Performed By: #### 5 0190-8, 2276-4 #### [facility] CLIA [id number] [address] [place] [address] OF DEE Plan of Treatment Date Care Activity Detail Author Start: 10-01-2032 Urine microalbumin profile DTaP,Tdap,Td Vaccine (2 - Td or Tdap) [facility] Start: 08-27-2025 GC (Gonorrhea) Scree anil (18-24) GC (Gonorrhea) Screening (18-) [facility] Start: 08-27-2025 Screening for Chlamy bianka trachomatis Chlamydia Screening () [facility] Start: 06-11-2025 Screening for malign ant neoplasm of cervix Cervical Cancer Screening [facility] Start: 12-28-2024 Influenza vaccination C [facility] Start: 11-26-2024 End: 11-26-2024 Patient encounter procedure 11/26/2024 11:15 AM EDT Routine Office Visit OB/Gynecology [address] [place] [address] Jackie Beltrán APRN.CNM [address] [place] [address] OB [facility] Comment on above: OB Start: 11-19-2024 End: 11-19-2024 Patient encounter procedure 11/19/2024 9:40 AM EDT Routine Office Visit OB/Gynecology [address] [place] [address] Celia Boss MD [address] [place] [address] OB [facility] Comment on above: OB Start: 11-11-2024 End: 11-11-2024 Patient encounter procedure 11/11/2024 10:30 AM EDT Routine Office Visit OB/Gynecology [address] [place] [address] Celia Boss MD [address] [place] [address] OB [facility] Comment on above: OB Start: 2024 End: 01-27-2025 Ferritin [Mass/volume] in Serum or Plasma [facility] Work Phone: Comment on above: Expected: 2024 , Expires: 01/27/2025 Start: 2024 End: 01-27-2025 Iron and Iron binding capacity panel - Serum or Plasma [facility] Comment on above: Expected: 2024 , Expires: 01/27/2025 Start: 2024 End: 2024 Patient encounter procedure 2024 9:00 AM EDT Routine Office Visit OB/Gynecology [address] [place] [address] Shakila Morales APRN.CNM [address] [place] [address] OB [facility] Comment on above: OB Start: 10-14-2024 End: 10-14-2024 Patient encounter procedure 10/14/2024 10:40 AM EDT Routine Office Visit OB/Gynecology [address] [place] [address] Jacquelyn Stewart MD [address] [place] [address] Growth/OB [facility] Comment on above: Growth/OB Start: 10-14-2024 End: 10-14-2024 Patient encounter procedure 10/14/2024 9:30 AM EDT Routine Office Visit [facility] [address] [place] [address] [facility] Comment on above: Growth Start: 10-07-2024 End: 10-07-2024 Patient encounter procedure 10/07/2024 9:10 AM EDT Routine Office Visit OB/Gynecology [address] [place] [address] Celia Boss MD [address] [place] [address] OB [facility] Comment on above: OB Start: 09-23-2024 End: 09-23-2024 Patient encounter procedure 09/23/2024 8:00 AM EDT Routine Office Visit OB/Gynecology [address] [place] [address] Shakila Morales APRN.[facility] [address] [place] [address] Est New OB [facility] Comment on above: Est New OB Start: 09-23-2024 End: 09-23-2024 ambulatory 09/23/2024 7:45 AM EDT Results Only [facility] [address] [place] [address] Glucose Test [facility] Comment on above: Glucose Test Start: 09-16-2024 End: 09-16-2024 Patient encounter procedure 09/16/2024 10:30 AM EDT Routine Office Visit [facility] [address] [place] [address] Anatomy Scan [facility] Comment on above: Anatomy Scan Start: 09-10-2024 End: 12-10-2024 ANEMIA REFLEX PANEL ANEMIA REFLEX PANEL Lab Routine Encounter for supervision of other normal in second trimester ([facility]) Expected: 09/10/2024, Expires: 12/10/2024 [facility] Comment on above: Expected: 09/10/2024 , Expires: 12/10/2024 Start: 09-10-2024 End: 09-10-2025 GESTATIONAL GLUCOSE SCREEN, 1-HOUR, 50 GRAM, NON-FASTING GESTATIONAL GLUCOSE SCREEN, 1-HOUR, 50 GRAM, NON-FASTING Lab Routine Screening for diabetes mellitus Expected: 09/10/2024, Expires: 09/10/2025 [facility] Work Phone: Comment on above: Expected: 09/10/2024 , Expires: 09/10/2025 Start: 09-10-2024 End: 09-10-2025 SYPHILIS TREPONEMAL W/REFLEX SYPHILIS TREPONEMAL W/REFLEX Lab Routine Encounter for supervision of other normal in second trimester ([facility]) Expected: 09/10/2024, Expires: 09/10/2025 [facility] Comment on above: Expected: 09/10/2024 , Expires: 09/10/2025 Start: 09-10-2024 End: 09-10-2024 Patient encounter procedure 09/10/2024 8:40 AM EDT Routine Office Visit OB/Gynecology [address] [place] [address] Luz Huizar MD [address] [place] [address] OB Routine OB[facility]Gy[facility]cology Comment on above: OB Routine Start: 08-27-2024 End: 11-26-2024 ANEMIA REFLEX PANEL [facility] Work Phone: Comment on above: Expected: 08/27/2024 , Expires: 11/26/2024 Start: 08-27-2024 End: 11-26-2024 Hemoglobin A1c in Blood [facility] Comment on above: Expected: 08/27/2024 , Expires: 11/26/2024 Start: 08-27-2024 End: 11-26-2024 Hepatitis B virus surface Ag [Presence] in Serum [facility] Comment on above: Expected: 08/27/2024 , Expires: 11/26/2024 Start: 08-27-2024 End: 11-26-2024 Hepatitis C virus Ab [Presence] in Serum [facility] Comment on above: Expected: 08/27/2024 , Expires: 11/26/2024 Start: 08-27-2024 End: 11-26-2024 HIV 1+2 Ab [Presence] in Serum or Plasma by Immunoassay [facility] Comment on above: Expected: 08/27/2024 , Expires: 11/26/2024 Start: 08-27-2024 End: 08-27-2025 OBSTETRIC ULTRASOUND [facility] OBSTETRIC ULTRASOUND [facility] Anc Imaging Routine with uncertain dates, second trimester (HCC) Expected: 08/27/2024, Expires: 08/27/2025 [facility] Comment on above: Expected: 08/27/2024 , Expires: 08/27/2025 Start: 08-27-2024 End: 11-26-2024 RUBELLA IGG ANTIBODY [facility] Comment on above: Expected: 08/27/2024 , Expires: 11/26/2024 Start: 08-27-2024 End: 11-26-2024 SYPHILIS TREPONEMAL W/REFLEX [facility] Comment on above: Expected: 08/27/2024 , Expires: 11/26/2024 Start: 08-27-2024 End: 11-26-2024 TYPE + SCREEN [facility] Comment on above: Expected: 08/27/2024 , Expires: 11/26/2024 Start: 12-29-2023 Covid-19 Vaccine ( season) Covid-19 Vaccine () [facility] Start: 11-20-2023 GC (Gonorrhea) Scree anli () GC (Gonorrhea) Screening () [facility] Start: 11-20-2023 Screening for Chlamy bianka trachomatis Chlamydia Screening (18-24) [facility] Start: 10-29-2019 Hepatitis B Vaccine (1 of 3 - 19+ 3-dose series) Hepatitis B Vaccine (1 of 3 - 19+ 3-dose series) [facility] Start: 2016 Meningococcal B Vacc ine (1 of 2 - Standard) Meningococcal B Vaccine (1 of 2 - Standard) [facility] Start: 10-29-2015 HPV Vaccine (1 - 3-d ose series) HPV Vaccine (1 - 3-dose series) [facility] Start: 2014 Peds To Adult Transi tion Annual Assessment Peds To Adult Transition Annual Assessment [facility] Start: 2012 Peds To Adult Transi tion Initial Discussion Peds To Adult Transition Initial Discussion [facility] Chlamydia trachomatis+Neisseria gonorrhoeae DNA [Presence] in Unspecified specimen by YANCY with probe detection GONORRHEA/CHLAMYDIA NAAT Lab Routine with uncertain dates, second trimester ([facility]) 08/27/2024 2:41 PM EDT [facility] End: 03-22-2025 OBSTETRIC ULTRASOUND WHI OBSTETRIC ULTRASOUND WHI Anc Imaging Routine Late care ([facility]) Anemia complicating , second trimester ([facility]) Once per month for 5 Occurrences starting 09/23/2024 until 03/22/2025 [facility] Work Phone: Comment on above: Once per month for 5 Occurrences starting 09/23/2024 until 03/22/2025 ROUTINE, GR OUP B STREPTOCOCCUS BY PCR ROUTINE, GROUP B STREPTOCOCCUS BY PCR Microbiology Routine 36 weeks gestation of ([facility]) 2024 11:21 AM EDT [facility] TRICHOMONAS VAGINALI S NAAT TRICHOMONAS VAGINALIS NAAT Lab Routine with uncertain dates, second trimester ([facility]) Late care ([facility]) 24 weeks gestation of ([facility]) Uterine size-date discrepancy, second trimester ([facility]) Language barrier Encounter for supervision of high risk in second trimester, antepartum ([facility]) Anxiety and depression 08/27/2024 2:41 PM EDT [facility] Immunizations Immunization Date Immunization Notes Care Provider Yury bhardwaj 10-01-2022 tetanus toxoid, redu angie diphtheria toxoid, and acellular pertussis vaccine, adsorbed Shakila Plotts COOK MESS.CNM Work Phone: [facility] 06-11-2022 influenza, injectabl e, quadrivalent, preservative free Shakila Wallerlisset COOK MESS.CNM Work Phone: [facility] 06-11-2022 influenza virus vacc ine, unspecified formulation Shakila Plotlisset COOK MESS.CNM Work Phone: [facility] Social History Date Type Detail Facility Start: 12-19-2022 Tobacco smoking stat us [facility] Never smoked tobacco [facility] Start: 12-19-2022 Tobacco use and exposure Smokeless tobacco non-user [facility] Start: 08-27-2024 End: 11-19-2024 Alcoholic beverage intake Lifetime non-drinker (finding) [facility] Start: 08-27-2024 End: 09-10-2024 History of Social function [facility] Start: 08-27-2024 End: 09-10-2024 Tobacco use panel [facility] The thought of briana graham myself has occurred to me Never [facility] National Score (1-100), lower number is lower risk 60 [facility] Start: 03-01-2024 [facility] Start: 2000 Sex assigned at Not on file [facility] NEGATED: Highlighted rowStart: NINF History of tobacco use Passive smoker [facility] Functional Status Date Assessment Result Facility 12-20-2022 Are you deaf, or do you have serious difficulty hearing No 12/20/2022 3:27 PM Jesi Wagoner, LEILA No [facility] 12-20-2022 Are you blind, or do you have serious difficulty seeing, even when wearing glasses No 12/20/2022 3:27 PM Jesi Wagoner, LEILA No [facility] 12-20-2022 Do you have serious difficulty walking or climbing stairs No 12/20/2022 3:27 PM Jesi Wagoner, RN No [facility] 12-20-2022 Do you have difficul ty dressing or bathing No 12/20/2022 3:27 PM Jesi Wagoner, RN No [facility] 12-20-2022 Because of a physica l, mental, or emotional condition, do you have difficulty doing errands alone such as visiting a physician's office or shopping No 12/20/2022 3:27 PM EDT Jesi Gao, RN No [facility] Mental Status Date Assessment Result Facility 12-20-2022 Because of a physica l, mental, or emotional condition, do you have serious difficulty concentrating, remembering, or making decisions No 12/20/2022 3:27 PM EDT Jesi Gao RN No [facility] Clinical Notes 08-27-2024 to 11-25-2024 Telephone Encounter - Dorys Gallagher LPN - 11/25/2024 2:45 PM EDTTelephone Encounter - Dorys Gallagher LPN - 11/25/2024 2:45 PM EDTPatient InstructionsPatient InstructionsPatient Instructions Note Date & Type Note Facility 11-25-2024 Telephone encounter Note Ob patient is 40w3d called using an conciliator c/o 8 out 10 lower back and abdominal pain with pelvic pressure, Denies LOF, no VB. Baby is active. Discussed with Franko Morales and patient was advised to go to [facility] l&d. Patient told nurse that she is not able to go to l&d d/t lack of transportation and is out of town for work until tomorrow. Patient stated that she would have to call a squad and go to [facility] in [place] but wanted to wait d/t having child home w/ her and family to help. [facility] 11-25-2024 Miscellaneous Notes Ob patient is 40w3d called using an conciliator c/o 8 out 10 lower back and abdominal pain with pelvic pressure, Denies LOF, no VB. Baby is active. Discussed with Franko Morales and patient was advised to go to [facility] l&d. Patient told nurse that she is not able to go to l&d d/t lack of transportation and is out of town for work until tomorrow. Patient stated that she would have to call a squad and go to [facility] in [place] but wanted to wait d/t having child home w/ her and family to help. documented in this encounter [facility] 11-19-2024 Progress note Formatting of t his note might be different from the original. Giles interpretor used S: Mis Ardon is a 24 year old female who presents at 11/22/2024, by Ultrasound for a routine visit. Denies headache, visual changes, chest pain, shortness of breath, vaginal bleeding, leakage of fluid, or dysuria. Feeling well, no complaints. Good movement, No contractions O: See flow sheet Gen: No apparent distress Abd: Gravid, nontender SENSITIVE EXAMINATION CONSENT: The sensitive examination was discussed with the Patient or Patient's Authorized Customer Service Cashier. As applicable, any other physician, advance practice provider, medical student, or other health professional student that will be observing or involved in the sensitive examination for educational or training purposes was discussed with the Patient or Authorized Customer Service Cashier. The Patient or Authorized Customer Service Cashier has agreed to proceed with the sensitive examination. High cervical station Discussed IOL if past EDC ASSESSMENT/PLAN: 1. Supervision of high risk in third trimester ([facility]) - ICD9: V23.9, ICD10: O09.93 (primary diagnosis) - URINE OB DIP B/O 2. Anemia during in third trimester ([facility]) - ICD9: 648.23, ICD10: O99.013 Iron supplement - URINE OB DIP B/O 3. 39 weeks gestation of ([facility]) - ICD9: V22.2, ICD10: Z3A.39 - URINE OB DIP B/O Celia Boss MD [facility] 11-19-2024 Miscellaneous Notes Giles interpretor used S: Mis Ardon is a 24 year old female who presents at 11/22/2024, by Ultrasound for a routine visit. Denies headache, visual changes, chest pain, shortness of breath, vaginal bleeding, leakage of fluid, or dysuria. Feeling well, no complaints. Good movement, No contractions O: See flow sheet Gen: No apparent distress Abd: Gravid, nontender SENSITIVE EXAMINATION CONSENT: The sensitive examination was discussed with the Patient or Patient's Authorized Customer Service Cashier. As applicable, any other physician, advance practice provider, medical student, or other health professional student that will be observing or involved in the sensitive examination for educational or training purposes was discussed with the Patient or Authorized Customer Service Cashier. The Patient or Authorized Customer Service Cashier has agreed to proceed with the sensitive examination. High cervical station Discussed IOL if past EDC ASSESSMENT/PLAN: 1. Supervision of high risk in third trimester ([facility]) - ICD9: V23.9, ICD10: O09.93 (primary diagnosis) - URINE OB DIP B/O 2. Anemia during in third trimester ([facility]) - ICD9: 648.23, ICD10: O99.013 Iron supplement - URINE OB DIP B/O 3. 39 weeks gestation of ([facility]) - ICD9: V22.2, ICD10: Z3A.39 - URINE OB DIP B/O Celia Boss MD documented in this encounter [facility] 11-19-2024 Instructions Shelby Martel MA - 11/19/2024 9:19 AM EDT SEQUENTIAL SCREENINGS The [facility] offers sequential screenings for women who are interested in screenings for chromosomal abnormalities and certain defects during a . The sequential screen combines ultrasound and blood tests to determine the risk of chromosomal abnormalities, including Down's Syndrome (Trisomy 21) and Trisomy 18, as well as open neural tube defects including spina bifida. Ultrasound examination is performed between 11 weeks and 13 weeks gestational age. Blood tests are drawn after the ultrasound and again later in the between 15 and 21 weeks gestational age. Please let your physician know if you are interested in this testing. It will require an appointment with our microelectronics technician. This is not an ultrasound performed by a physician in our office during a routine visit. SIGNS AND SYMPTOMS OF LABOR 1. Contractions every 10 minutes or more often 2. Clear, pink, or brownish fluid (water) leaking from vagina 3. Feeling that baby is pushing down, pressure 4. Low, dull backache 5. Cramps that feel like a period 6. Cramps with or without diarrhea If you notice any of the above symptoms, contact our office at [phone] and ask to speak with a nurse. After hours, you can call [facility] at [phone] OR call [facility] at [phone] and ask to have the doctor psychologist personnel paged. If you consider this an emergency, dial 9--1 or go to your nearest emergency department. NEED HELP? Are you dealing with a violent or abusive relationship? Are you a victim of rape or sexual assult? Call [facility] ([place]) 24 hour Crisis Hotline: 102.723.4554 or 627-310-4269. MANUAL Your Guide to a Healthy manual is now on-line. Visit [email or web address] to download your free copy documented in this encounter [facility] 11-11-2024 Progress note Formatting of t his note might be different from the original. S: Mis Ardon is a 24 year old female who presents at 11/22/2024, by Ultrasound for a routine visit. Denies headache, visual changes, chest pain, shortness of breath, vaginal bleeding, leakage of fluid, or dysuria. Feeling well, no complaints. Good movement, No contractions No ZAMORA or vision symptoms O: See flow sheet Gen: No apparent distress Abd: Gravid, nontender Pipe Caulker services used Hospital address provided and reviewed when to go to the hospital ASSESSMENT/PLAN: 1. 38 weeks gestation of ([facility]) - ICD9: V22.2, ICD10: Z3A.38 (primary diagnosis) - URINE OB DIP B/O 2. Supervision of high risk in third trimester ([facility]) - ICD9: V23.9, ICD10: O09.93 - URINE OB DIP B/O 3. Language barrier - ICD9: V49.89, ICD10: Z60.3, Z75.8 - URINE OB DIP B/O 4. Anemia during in third trimester ([facility]) - ICD9: 648.23, ICD10: O99.013 - URINE OB DIP B/O Celia Boss MD [facility] 11-11-2024 Miscellaneous Notes S: Mis Ardon is a 24 year old female who presents at 11/22/2024, by Ultrasound for a routine visit. Denies headache, visual changes, chest pain, shortness of breath, vaginal bleeding, leakage of fluid, or dysuria. Feeling well, no complaints. Good movement, No contractions No ZAMORA or vision symptoms O: See flow sheet Gen: No apparent distress Abd: Gravid, nontender Pipe Caulker services used Hospital address provided and reviewed when to go to the hospital ASSESSMENT/PLAN: 1. 38 weeks gestation of ([facility]) - ICD9: V22.2, ICD10: Z3A.38 (primary diagnosis) - URINE OB DIP B/O 2. Supervision of high risk in third trimester ([facility]) - ICD9: V23.9, ICD10: O09.93 - URINE OB DIP B/O 3. Language barrier - ICD9: V49.89, ICD10: Z60.3, Z75.8 - URINE OB DIP B/O 4. Anemia during in third trimester ([facility]) - ICD9: 648.23, ICD10: O99.013 - URINE OB DIP B/O Celia Boss MD documented in this encounter [facility] 11-11-2024 Instructions Delmis Hutchinson MA - 11/11/2024 10:14 AM EDT SEQUENTIAL SCREENINGS The [facility] offers sequential screenings for women who are interested in screenings for chromosomal abnormalities and certain defects during a . The sequential screen combines ultrasound and blood tests to determine the risk of chromosomal abnormalities, including Down's Syndrome (Trisomy 21) and Trisomy 18, as well as open neural tube defects including spina bifida. Ultrasound examination is performed between 11 weeks and 13 weeks gestational age. Blood tests are drawn after the ultrasound and again later in the between 15 and 21 weeks gestational age. Please let your physician know if you are interested in this testing. It will require an appointment with our microelectronics technician. This is not an ultrasound performed by a physician in our office during a routine visit. SIGNS AND SYMPTOMS OF LABOR 1. Contractions every 10 minutes or more often 2. Clear, pink, or brownish fluid (water) leaking from vagina 3. Feeling that baby is pushing down, pressure 4. Low, dull backache 5. Cramps that feel like a period 6. Cramps with or without diarrhea If you notice any of the above symptoms, contact our office at [phone] and ask to speak with a nurse. After hours, you can call [facility] at [phone] OR call [facility] at [phone] and ask to have the doctor psychologist personnel paged. If you consider this an emergency, dial 5-4-0 or go to your nearest emergency department. NEED HELP? Are you dealing with a violent or abusive relationship? Are you a victim of rape or sexual assult? Call [facility] ([place]) 24 hour Crisis Hotline: 419.804.1260 or 977-851-3936. MANUAL Your Guide to a Healthy manual is now on-line. Visit [email or web address] to download your free copy documented in this encounter [facility] 2024 Progress note Formatting of t his note might be different from the original. NEENA-S: Mis Ardon is a 24 year old female who presents at 36w3d with WILMAN:11/22/2024, by Ultrasound for a routine visit. Denies headache, visual changes, chest pain, shortness of breath, vaginal bleeding, leakage of fluid, or dysuria. Feeling well, no complaints. O: See flow sheet Gen: No apparent distress Abd: Gravid, nontender The EFW is 2481 g, at the 51%. AC is at the 80%. - Amniotic fluid volume is normal amount with an MVP of 5.8 cm and JAYRO of 20.8 cm. Limited bedside US confirms cephalic presentation ASSESSMENT/PLAN: 1. Supervision of high risk in third trimester -Continue PNV -GBS today 2. 36 weeks gestation of - ROUTINE, GROUP B STREPTOCOCCUS BY PCR 3. Language barrier - Speaks Quiche, can understand some Chilean - Needs interpretor scheduled prior to visit for Quiche 4. Anemia during in third trimester -Continue Iron supplement -Repeat CBC and iron studies today 5. Late care 6. Anxiety and depression PTL precautions reviewed and when to call RTO in 1 week Jackie Beltrán APRN.CNM [facility] 2024 Miscellaneous Notes NEENA-S: Mis Ardon is a 24 year old female who presents at 36w3d with WILMAN:11/22/2024, by Ultrasound for a routine visit. Denies headache, visual changes, chest pain, shortness of breath, vaginal bleeding, leakage of fluid, or dysuria. Feeling well, no complaints. O: See flow sheet Gen: No apparent distress Abd: Gravid, nontender The EFW is 2481 g, at the 51%. AC is at the 80%. - Amniotic fluid volume is normal amount with an MVP of 5.8 cm and JAYRO of 20.8 cm. Limited bedside US confirms cephalic presentation ASSESSMENT/PLAN: 1. Supervision of high risk in third trimester -Continue PNV -GBS today 2. 36 weeks gestation of - ROUTINE, GROUP B STREPTOCOCCUS BY PCR 3. Language barrier - Speaks Quiche, can understand some Chilean - Needs interpretor scheduled prior to visit for Quiche 4. Anemia during in third trimester -Continue Iron supplement -Repeat CBC and iron studies today 5. Late care 6. Anxiety and depression PTL precautions reviewed and when to call RTO in 1 week Jackie Beltrán APRN.CNM documented in this encounter [facility] 2024 Instructions Nicholas Mooney MA - 2024 10:42 AM EDT SEQUENTIAL SCREENINGS The [facility] offers sequential screenings for women who are interested in screenings for chromosomal abnormalities and certain defects during a . The sequential screen combines ultrasound and blood tests to determine the risk of chromosomal abnormalities, including Down's Syndrome (Trisomy 21) and Trisomy 18, as well as open neural tube defects including spina bifida. Ultrasound examination is performed between 11 weeks and 13 weeks gestational age. Blood tests are drawn after the ultrasound and again later in the between 15 and 21 weeks gestational age. Please let your physician know if you are interested in this testing. It will require an appointment with our microelectronics technician. This is not an ultrasound performed by a physician in our office during a routine visit. SIGNS AND SYMPTOMS OF LABOR 1. Contractions every 10 minutes or more often 2. Clear, pink, or brownish fluid (water) leaking from vagina 3. Feeling that baby is pushing down, pressure 4. Low, dull backache 5. Cramps that feel like a period 6. Cramps with or without diarrhea If you notice any of the above symptoms, contact our office at [phone] and ask to speak with a nurse. After hours, you can call [facility] at [phone] OR call [facility] at [phone] and ask to have the doctor psychologist personnel paged. If you consider this an emergency, dial 91-9 or go to your nearest emergency department. NEED HELP? Are you dealing with a violent or abusive relationship? Are you a victim of rape or sexual assult? Call [facility] ([facility] 24 hour Crisis Hotline: 339.330.6640 or 240-995-1161. MANUAL Your Guide to a Healthy manual is now on-line. Visit [email or web address] to download your free copy documented in this encounter [facility] 10-14-2024 Note Indication Evaluation of growth, Maternal obesity, BMI >30 Impression remote read - Single, live, intrauterine . - presentation is oblique, cephalic. - The biometry is consistent with the assigned gestational dating. - The EFW is 2481 g, at the 51%. AC is at the 80%. - Amniotic fluid volume is normal amount with an MVP of 5.8 cm and JAYRO of 20.8 cm. - The placenta is anterior, fundal. - No malformations visualized on a limited survey as detailed below. Recommendations Additional follow-up as clinically indicated. Maternal Assessment Height 155 cm Height (ft) 5 ft Height (in) 1 in Physical Exam Initial weight (lb) 167 lb Initial BMI 31.55 kg/m Method Transabdominal ultrasound examination. View: Suboptimal view: limited by position Modi . Number of fetuses: 1 Dating LMP on: 03/08/2024 GA by LMP 31 w + 3 d WILMAN by LMP: 12/13/2024 GA by prior assessment 34 w + 3 d WILMAN by prior assessment: 11/22/2024 Ultrasound examination on: 10/14/2024 GA by U/S based upon: AC, BPD, Femur, HC GA by U/S 34 w + 5 d WILMAN by U/S: 11/20/2024 Assigned: based on ultrasound (AC, BPD, Femur, HC), selected on 09/16/2024 Assigned GA 34 w + 3 d Assigned WILMAN: 11/22/2024 General Evaluation Cardiac activity present. FHR 147 bpm. movements: present. Presentation: oblique, cephalic Placenta: Placental site: anterior, fundal Umbilical cord: Cord vessels: 3 vessel cord. Insertion site: normal insertion Amniotic fluid: Amount of AF: normal amount. MVP 5.8 cm. JAYRO 20.8 cm. Q1 5.3 cm, Q2 5.8 cm, Q3 5.0 cm, Q4 4.8 cm Growth Overview Exam date GA BPD (mm) HC (mm) AC (mm) FL (mm) HL (mm) EFW (g) 09/16/2024 30w 3d 78.2 68% 282.9 46% 273.5 75% 54 11% 51.7 47% 1579 39% 10/14/2024 34w 3d 88.7 86% 318.3 59% 314.2 80% 63.3 20% 2481 51% Biometry Standard BPD 88.7 mm 35w 6d 86% Hadlock OFD 108.1 mm 32w 3d 26% Nicolaides HC 318.3 mm 34w 6d 59% Clifford AC 314.2 mm 35w 2d 80% Hadlock Femur 63.3 mm 32w 4d 20% Clifford EFW 2,481 g 34w 3d 51% Hadlock EFW (lb) 5 lb EFW (oz) 7 oz EFW by: Hadlock (HC-AC-FL) Extremities / Bony Struc FL / HC 0.20 Other Structures FHR 147 bpm Anatomy Lateral ventricles: suboptimally visualized Cavum septi pellucidi: suboptimally visualized Cerebellum: suboptimally visualized Cisterna magna: suboptimally visualized 4-chamber view: normal RVOT view: normal LVOT view: normal 3-vessel view: normal Heart / Thorax Situs: situs solitus (normal) Diaphragm: normal Stomach: normal Kidneys: normal Bladder: normal Wants to know sex: yes Performed By: Brandie Leonard RDMS Read By: Estehr Da Silva M.D. [facility] 10-14-2024 Progress note Formatting of t his note might be different from the original. RR- VB No. LOF No. CTXS No. Movement: present. Other c/o: No. Medication list reviewed. SENSITIVE EXAM: Sensitive exam not performed. Physical Exam See Flow Sheet Abd: soft, nontender, gravid Ext: edema: Trace A/P 34w3d Estimated Date of Delivery: 11/22/24 Assessment & Plan Language barrier phone conciliator services used Anemia during in third trimester ([facility]) recommend Fe and PNV Supervision of high risk in third trimester ([facility]) growth scan aga w/ normal afv today Encounter for supervision of high risk in second trimester, antepartum ([facility]) conciliator services via phone used f/u in 2 weeks or prn Jacquelyn Stewart M.D. T [facility] 10-14-2024 Miscellaneous Notes RR- VB No. LOF No. CTXS No. Movement: present. Other c/o: No. Medication list reviewed. SENSITIVE EXAM: Sensitive exam not performed. Physical Exam See Flow Sheet Abd: soft, nontender, gravid Ext: edema: Trace A/P 34w3d Estimated Date of Delivery: 11/22/24 Assessment & Plan Language barrier phone conciliator services used Anemia during in third trimester ([facility]) recommend Fe and PNV Supervision of high risk in third trimester ([facility]) growth scan aga w/ normal afv today Encounter for supervision of high risk in second trimester, antepartum ([facility]) conciliator services via phone used f/u in 2 weeks or prn Jacquelyn Stewart M.D. documented in this encounter [facility] 10-07-2024 Progress note Formatting of t his note might be different from the original. S: Mis Ardon is a 23 year old female who presents at 11/22/2024, by Ultrasound for a routine visit. Denies headache, visual changes, chest pain, shortness of breath, vaginal bleeding, leakage of fluid, or dysuria. Feeling well, no complaints. Good movement, No contractions O: See flow sheet Gen: No apparent distress Abd: Gravid, nontender Growth in 2 weeks No concerns Pipe Caulker services used ASSESSMENT/PLAN: 1. 33 weeks gestation of ([facility]) - ICD9: V22.2, ICD10: Z3A.33 (primary diagnosis) 2. Encounter for supervision of normal first in third trimester ([facility]) - ICD9: V22.0, ICD10: Z34.03 3. Language barrier - ICD9: V49.89, ICD10: Z60.3, Z75.8 Speaks Giles Boss MD [facility] 10-07-2024 Miscellaneous Notes S: Mis Ardon is a 23 year old female who presents at 11/22/2024, by Ultrasound for a routine visit. Denies headache, visual changes, chest pain, shortness of breath, vaginal bleeding, leakage of fluid, or dysuria. Feeling well, no complaints. Good movement, No contractions O: See flow sheet Gen: No apparent distress Abd: Gravid, nontender Growth in 2 weeks No concerns Pipe Caulker services used ASSESSMENT/PLAN: 1. 33 weeks gestation of ([facility] [facility] - ICD9: V22.2, ICD10: Z3A.33 (primary diagnosis) 2. Encounter for supervision of normal first in third trimester ([facility]) - ICD9: V22.0, ICD10: Z34.03 3. Language barrier - ICD9: V49.89, ICD10: Z60.3, Z75.8 Speaks Giles Boss MD documented in this encounter [facility] 10-07-2024 Instructions Franky Cunningham MA - 10/07/2024 8:52 AM EDT SEQUENTIAL SCREENINGS [facility] offers sequential screenings for women who are interested in screenings for chromosomal abnormalities and certain defects during a . The sequential screen combines ultrasound and blood tests to determine the risk of chromosomal abnormalities, including Down's Syndrome (Trisomy 21) and Trisomy 18, as well as open neural tube defects including spina bifida. Ultrasound examination is performed between 11 weeks and 13 weeks gestational age. Blood tests are drawn after the ultrasound and again later in the between 15 and 21 weeks gestational age. Please let your physician know if you are interested in this testing. It will require an appointment with our microelectronics technician. This is not an ultrasound performed by a physician in our office during a routine visit. SIGNS AND SYMPTOMS OF LABOR 1. Contractions every 10 minutes or more often 2. Clear, pink, or brownish fluid (water) leaking from vagina 3. Feeling that baby is pushing down, pressure 4. Low, dull backache 5. Cramps that feel like a period 6. Cramps with or without diarrhea If you notice any of the above symptoms, contact our office at [phone] and ask to speak with a nurse. After hours, you can call doctors registry at [phone] OR call [facility] at [phone] and ask to have the doctor psychologist personnel paged. If you consider this an emergency, dial 9-1-5 or go to your nearest emergency department. NEED HELP? Are you dealing with a violent or abusive relationship? Are you a victim of rape or sexual assult? Call [facility] ([facility] 24 hour Crisis Hotline: 622.186.8601 or 630-559-7897. MANUAL Your Guide to a Healthy manual is now on-line. Visit [email or web address] to download your free copy documented in this encounter [facility] 09-23-2024 Note HNO ID: [id number] Author: YEHUDA AVITIA LPN Service: ? Author Type: LICENSED NURSE Type: Progress Notes Filed: 09/23/2024 13:17 Note Text: Vaccine verified and drawn up to administer, patient declined to have TDAP with visit, vaccine discarded. Yehuda Avitia LPN Patient identified by name and date of . Mis Rizzo Mak Duglas presents today for a vaccination of Tdap. Patient denies an allergy to latex: yes Patient denies a severe (life-threatening) allergy to a previous dose of Tdap, DTP, DTaP, DT or Td vaccine. Yes Patient denies history of epilepsy or neurological problems: Yes Patient is afebrile and denies being moderately or severely ill: Yes Patient denies history of Guillain-[place] Syndrome (a severe paralytic illness): Yes Tdap Adacel injection was given without incident. See immunizations for details of immunizations administered today. VIS sheet provided: Yes Provider Dr Luz Lyn was present in office at time of injection. Yehuda Avitia LPN [facility] 09-23-2024 History of Presen t illness Narrative Vaccine verified and drawn up to administer, patient declined to have TDAP with visit, vaccine discarded. Yehuda Avitia LPN Patient identified by name and date of . Mis Arodn presents today for a vaccination of Tdap. Patient denies an allergy to latex: yes Patient denies a severe (life-threatening) allergy to a previous dose of Tdap, DTP, DTaP, DT or Td vaccine. Yes Patient denies history of epilepsy or neurological problems: Yes Patient is afebrile and denies being moderately or severely ill: Yes Patient denies history of Guillain-[place] Syndrome (a severe paralytic illness): Yes Tdap Adacel injection was given without incident. See immunizations for details of immunizations administered today. VIS sheet provided: Yes Provider Dr Luz Lyn was present in office at time of injection. Yehuda Avitia LPN documented in this encounter [facility] 09-23-2024 Progress note Formatting of t his note might be different from the original. Translation services utilized S: Mis Ardon is a 23 year old female who presents at 31 weeks gestation for a routine visit. Positive movements. Just completed GCT testing. Denies headache, visual changes, chest pain, shortness of breath, vaginal bleeding, leakage of fluid, or dysuria. Feeling well, no complaints. O: See flow sheet Gen: No apparent distress Abd: Gravid, non tender ASSESSMENT/PLAN: 1. 31 weeks gestation of 2. Language barrier 3. Late care (HCC) - Continue oral iron supplementation - Repeat Growth US at 34 weeks - 1 hour GCT, CBC, and RPR today - Rh positive- O+ - TDAP declines - LARC form reviewed and signed. Patient DESIRES NEXPLANON- consent signed - Depression screen negative - Opioid screen negative - plan form discussed and given to patient. Patient desires epidural and formula feeding - PTL precautions and kick counts reviewed - RTO- 2 weeks or sooner if needed Shakila Morales APRN.CNM [facility] 09-23-2024 Miscellaneous Notes Translation services utilized S: Mis Ardon is a 23 year old female who presents at 31 weeks gestation for a routine visit. Positive movements. Just completed GCT testing. Denies headache, visual changes, chest pain, shortness of breath, vaginal bleeding, leakage of fluid, or dysuria. Feeling well, no complaints. O: See flow sheet Gen: No apparent distress Abd: Gravid, non tender ASSESSMENT/PLAN: 1. 31 weeks gestation of 2. Language barrier 3. Late care (HCC) - Continue oral iron supplementation - Repeat Growth US at 34 weeks - 1 hour GCT, CBC, and RPR today - Rh positive- O+ - TDAP declines - LARC form reviewed and signed. Patient DESIRES NEXPLANON- consent signed - Depression screen negative - Opioid screen negative - plan form discussed and given to patient. Patient desires epidural and formula feeding - PTL precautions and kick counts reviewed - RTO- 2 weeks or sooner if needed Shakila Morales APRN.CNM documented in this encounter [facility] 09-23-2024 Instructions Yehuda Avitia LPN - 09/23/2024 7:46 AM EDT SEQUENTIAL SCREENINGS [facility] offers sequential screenings for women who are interested in screenings for chromosomal abnormalities and certain defects during a . The sequential screen combines ultrasound and blood tests to determine the risk of chromosomal abnormalities, including Down's Syndrome (Trisomy 21) and Trisomy 18, as well as open neural tube defects including spina bifida. Ultrasound examination is performed between 11 weeks and 13 weeks gestational age. Blood tests are drawn after the ultrasound and again later in the between 15 and 21 weeks gestational age. Please let your physician know if you are interested in this testing. It will require an appointment with our microelectronics technician. This is not an ultrasound performed by a physician in our office during a routine visit. SIGNS AND SYMPTOMS OF LABOR 1. Contractions every 10 minutes or more often 2. Clear, pink, or brownish fluid (water) leaking from vagina 3. Feeling that baby is pushing down, pressure 4. Low, dull backache 5. Cramps that feel like a period 6. Cramps with or without diarrhea If you notice any of the above symptoms, contact our office at [phone] and ask to speak with a nurse. After hours, you can call doctors registry at [phone] OR call [facility] at [phone] and ask to have the doctor psychologist personnel paged. If you consider this an emergency, dial 9--2 or go to your nearest emergency department. NEED HELP? Are you dealing with a violent or abusive relationship? Are you a victim of rape or sexual assult? Call [facility] ([place]) 24 hour Crisis Hotline: 482.621.8674 or 219-793-4299. MANUAL Your Guide to a Healthy manual is now on-line. Visit [email or web address] to download your free copy documented in this encounter [facility] 09-10-2024 Progress note Formatting of t his note might be different from the original. Interpretor services used DM-Pt doing well. Denies vaginal Bleeding, Leaking fluid, or regular Contractions. Pt reports good movement. C/o lower back pain at times. Physical Exam: Gen: female in no apparent distress Abd: soft, Gravid. Non tender to palpation. See flow sheet @26.4 weeks Assessment & Plan Encounter for supervision of high risk in second trimester, antepartum (HCC) Anemia complicating , second trimester (HCC) Will start iron supplement Orders: ferrous sulfate 325 mg (65 mg iron) tablet; Take 1 tablet by mouth once daily. Screening for diabetes mellitus Orders: GESTATIONAL GLUCOSE SCREEN, 1-HOUR, 50 GRAM, NON-FASTING; Future Encounter for supervision of other normal in second trimester ([facility]) Orders: SYPHILIS TREPONEMAL W/REFLEX; Future ANEMIA REFLEX PANEL; Future 26 weeks gestation of (HCC) RTO 2 weeks Luz Valladares MD [facility] 09-10-2024 Miscellaneous Notes Interpretor services used DM-Pt doing well. Denies vaginal Bleeding, Leaking fluid, or regular Contractions. Pt reports good movement. C/o lower back pain at times. Physical Exam: Gen: female in no apparent distress Abd: soft, Gravid. Non tender to palpation. See flow sheet @26.4 weeks Assessment & Plan Encounter for supervision of high risk in second trimester, antepartum (HCC) Anemia complicating , second trimester (HCC) Will start iron supplement Orders: ferrous sulfate 325 mg (65 mg iron) tablet; Take 1 tablet by mouth once daily. Screening for diabetes mellitus Orders: GESTATIONAL GLUCOSE SCREEN, 1-HOUR, 50 GRAM, NON-FASTING; Future Encounter for supervision of other normal in second trimester ([facility]) Orders: SYPHILIS TREPONEMAL W/REFLEX; Future ANEMIA REFLEX PANEL; Future 26 weeks gestation of (HCC) RTO 2 weeks Luz Valladares MD documented in this encounter [facility] 09-10-2024 Instructions Delonte ShelbyTIEN - 09/10/2024 8:16 AM EDT SEQUENTIAL SCREENINGS [facility] offers sequential screenings for women who are interested in screenings for chromosomal abnormalities and certain defects during a . The sequential screen combines ultrasound and blood tests to determine the risk of chromosomal abnormalities, including Down's Syndrome (Trisomy 21) and Trisomy 18, as well as open neural tube defects including spina bifida. Ultrasound examination is performed between 11 weeks and 13 weeks gestational age. Blood tests are drawn after the ultrasound and again later in the between 15 and 21 weeks gestational age. Please let your physician know if you are interested in this testing. It will require an appointment with our microelectronics technician. This is not an ultrasound performed by a physician in our office during a routine visit. SIGNS AND SYMPTOMS OF LABOR 1. Contractions every 10 minutes or more often 2. Clear, pink, or brownish fluid (water) leaking from vagina 3. Feeling that baby is pushing down, pressure 4. Low, dull backache 5. Cramps that feel like a period 6. Cramps with or without diarrhea If you notice any of the above symptoms, contact our office at [phone] and ask to speak with a nurse. After hours, you can call doctors registry at [phone] OR call [facility] at [phone] and ask to have the doctor psychologist personnel paged. If you consider this an emergency, dial 9--1 or go to your nearest emergency department. NEED HELP? Are you dealing with a violent or abusive relationship? Are you a victim of rape or sexual assult? Call [facility] ([place]) 24 hour Crisis Hotline: 321.576.6390 or 028-748-9913. MANUAL Your Guide to a Healthy manual is now on-line. Visit [email or web address] to download your free copy documented in this encounter [facility] 08-27-2024 Note Addended by: SHAKILA MORALES on: 08/27/2024 02:35 PM Modules accepted: Orders [facility] 08-27-2024 Miscellaneous Notes Addended by: SHAKILA MORALES on: 08/27/2024 02:35 PM Modules accepted: Orders Addended by: NICHOLAS MOONEY on: 08/27/2024 02:08 PM Modules accepted: Orders Patient is at 24.4 weeks gestation via LMP. This is patient's first OB appointment this . in 2022 at [facility] in [place]. NOB completed today- see progress note. Dating US ordered PANCHO. Shakila Morales APRN.CNM documented in this encounter [facility] 08-27-2024 Note Addended by: NICHOLAS MOOENY on: 08/27/2024 02:08 PM Modules accepted: Orders [facility] 08-27-2024 Progress note Formatting of t his note might be different from the original. Patient is at 24.4 weeks gestation via LMP. This is patient's first OB appointment this . in 2022 at [facility] in [place]. NOB completed today- see progress note. Dating US ordered PANCHO. Shakila Morales APRN.CNM [facility] 08-27-2024 Note HNO ID: [id number] Author: SHAKILA MORALES APRN.CNM Service: ? Author Type: Bridge Crane Operator Type: Progress Notes Filed: 08/27/2024 14:01 Note Text: INITIAL OB ASSESSMENT HPI: Mis is a 23 year old Unavailable here to establish Obstetrical Care. Patient's last menstrual period was 03/08/2024. from OB Dating Form. was unplanned but accepted Complaints: No OB History Gravida2 Para1 Term1 Preterm0 AB0 Living1 SAB0 IAB0 Ectopic0 Multiple0 Live Births1 Previous history: Prior : never History of 4th degree laceration: No History of shoulder dystocia: No History of Hypertensive disorders including pre-eclampsia or gestational hypertension: No History of gestational diabetes: No Patient's Risk Screening for delivery: Have you had a prior modi between 20w and 36w6d? No How many pregnancies have you had before? 1 Did you have a previous baby with a GBS Infection? No Please select all that apply for any prior : N/A MEDICAL/PSYCHOSOCIAL HISTORY: History of hemorrhage or bleeding concerns: No Thyroid Disease: No History of chronic hypertension: No History of pre-existing diabetes: No No results found for: ABORHD BMI 31.55 kg/(m2) Last Pap: 06/13/2022 History of abnormal pap: No Prior treatment for cervical dysplasia: None. Last HPV: N/A History of STDs: None Partner History of STDs: None Did you have a partner with Herpes? No Tobacco use: No E-Cigarette/Vaping Use: No Caffeine use: No Drug use: No Alcohol use: No Multivitamin with Folic acid: No Would refuse blood transfusion if medically necessary: No Social Needs: How often does this describe you? I don't have enough money to pay my bills: Sometimes Within the past 12 months, have you worried that your food would run out before you had money to buy more? Sometimes In the past 12 months, has lack of reliable transportation kept you from going to medical appointments or work, or from getting things needed for daily living? Sometimes In the past 12 months, have you had any concerns about having a place to live, or about the condition or quality of your housing? Sometimes Would you like more information on any of the following (please check all that apply)? Not interested Social History: Do you have any history of depression, anxiety, PTSD, or other mood problems? Sometimes Do you have a history of abuse or trauma that may impact your experience? No Are you currently employed? No Depression/Anxiety Screening: admits to symptoms of depression. OB Depression and Anxiety Screening- This Encounter Over the past 2 weeks have you felt down, depressed, or hopeless? Positive - Further Testing Indicated Over the past two weeks, have you felt little interest or pleasure in doing things?? Positive - Further Testing Indicated I have been able to laugh and see the funny side of things. As much as I always could I have looked forward with enjoyment to things. As much as I ever did I have blamed myself unnecessarily when things went wrong. Not very often I have been anxious or worried for no good reason. Hardly ever I have felt scared or panicky for no good reason. No, not much Things have been getting on top of me. No, most of the time I have coped quite well I have been so unhappy that I have had difficulty sleeping. Not very often I have felt sad or miserable. Not very often I have been so unhappy that I have been crying. No, never The thought of harming myself has occurred to me. Never [place] Depression Scale Total 6 Feeling nervous, anxious or on edge 1-Several days Not being able to stop or control worrying 1-Several days Anxiety Pre-Screening Total (If >/= 3 additional questions will be reviewed) 2 Genetic Screening: Partner present: No Patient verbalized knowledge of partner family health history: Yes Do you or your partner have any personal or family history of defects not previously discussed: No Do you have history of a complicated by anomaly, genetic condition, or demise: No Preeclampsia Risk Screening: Screening for prevention of preeclampsia: High risk factors: None Moderate risk ractors: None OB Risk Screening: Completed, no positive findings documented. Marital Status: Partner: Name: Dm Corado Age: 30 Occupation: construction, tim Gender: Male PAST MEDICAL HISTORY Diagnosis Date Anemia History reviewed. No pertinent surgical history. Current Outpatient Medications Medication Sig Dispense Refill norgestimate 0.25 mg-ethinyl estradiol 35 mcg (SPRINTEC) 0.25-35 mg-mcg per tablet Take 1 tablet by mouth once daily. (Patient not taking: Reported on 08/27/2024) 84 tablet 3 ibuprofen (MOTRIN) 600 mg tablet Take 1 tablet by mouth every 6 hours as needed for pain. (Patient not taking: Reported on 08/27/2024) 90 (more content not included)... [facility] 08-27-2024 History of Presen t illness Narrative INITIAL OB ASSESSMENT HPI: Mis is a 23 year old Unavailable here to establish Obstetrical Care. Patient's last menstrual period was 03/08/2024. from OB Dating Form. was unplanned but accepted Complaints: No OB History Gravida2 Para1 Term1 Preterm0 AB0 Living1 SAB0 IAB0 Ectopic0 Multiple0 Live Births1 Previous history: Prior : never History of 4th degree laceration: No History of shoulder dystocia: No History of Hypertensive disorders including pre-eclampsia or gestational hypertension: No History of gestational diabetes: No Patient's Risk Screening for delivery: Have you had a prior modi between 20w and 36w6d? No How many pregnancies have you had before? 1 Did you have a previous baby with a GBS Infection? No Please select all that apply for any prior : N/A MEDICAL/PSYCHOSOCIAL HISTORY: History of hemorrhage or bleeding concerns: No Thyroid Disease: No History of chronic hypertension: No History of pre-existing diabetes: No No results found for: ABORHD BMI 31.55 kg/(m^2) Last Pap: 06/13/2022 History of abnormal pap: No Prior treatment for cervical dysplasia: None. Last HPV: N/A History of STDs: None Partner History of STDs: None Did you have a partner with Herpes? No Tobacco use: No E-Cigarette/Vaping Use: No Caffeine use: No Drug use: No Alcohol use: No Multivitamin with Folic acid: No Would refuse blood transfusion if medically necessary: No Social Needs: How often does this describe you? I don't have enough money to pay my bills: Sometimes Within the past 12 months, have you worried that your food would run out before you had money to buy more? Sometimes In the past 12 months, has lack of reliable transportation kept you from going to medical appointments or work, or from getting things needed for daily living? Sometimes In the past 12 months, have you had any concerns about having a place to live, or about the condition or quality of your housing? Sometimes Would you like more information on any of the following (please check all that apply)? Not interested Social History: Do you have any history of depression, anxiety, PTSD, or other mood problems? Sometimes Do you have a history of abuse or trauma that may impact your experience? No Are you currently employed? No Depression/Anxiety Screening: admits to symptoms of depression. OB Depression and Anxiety Screening- This Encounter Over the past 2 weeks have you felt down, depressed, or hopeless? Positive - Further Testing Indicated Over the past two weeks, have you felt little interest or pleasure in doing things? Positive - Further Testing Indicated I have been able to laugh and see the funny side of things. As much as I always could I have looked forward with enjoyment to things. As much as I ever did I have blamed myself unnecessarily when things went wrong. Not very often I have been anxious or worried for no good reason. Hardly ever I have felt scared or panicky for no good reason. No, not much Things have been getting on top of me. No, most of the time I have coped quite well I have been so unhappy that I have had difficulty sleeping. Not very often I have felt sad or miserable. Not very often I have been so unhappy that I have been crying. No, never The thought of harming myself has occurred to me. Never [place] Depression Scale Total 6 Feeling nervous, anxious or on edge 1-Several days Not being able to stop or control worrying 1-Several days Anxiety Pre-Screening Total (If >/= 3 additional questions will be reviewed) 2 Genetic Screening: Partner present: No Patient verbalized knowledge of partner family health history: Yes Do you or your partner have any personal or family history of defects not previously discussed: No Do you have history of a complicated by anomaly, genetic condition, or demise: No Preeclampsia Risk Screening: Screening for prevention of preeclampsia: High risk factors: None Moderate risk ractors: None OB Risk Screening: Completed, no positive findings documented. Marital Status: Partner: Name: mD Corado Age: 30 Occupation: construction, tim Gender: Male PAST MEDICAL HISTORY Diagnosis Date Anemia History reviewed. No pertinent surgical history. Current Outpatient Medications Medication Sig Dispense Refill norgestimate 0.25 mg-ethinyl estradiol 35 mcg (SPRINTEC) 0.25-35 mg-mcg per tablet Take 1 tablet by mouth once daily. (Patient not taking: Reported on 08/27/2024) 84 tablet 3 ibuprofen (MOTRIN) 600 mg tablet Take 1 tablet by mouth every 6 hours as needed for pain. (Patient not taking: Reported on 08/27/2024) 90 tablet 0 multivitamin ( VITAMIN WITH MINERALS) 28 mg iron- 800 mcg tab Take 1 tablet by mouth once daily. (Patient not taking: Reported on 08/27/2024) 30 tablet 11 ferrous sulfate 325 mg (65 mg iron) tablet Take 1 tablet by mouth daily with breakfast. (Patient not taking: Reported on 01/31/2023) 30 tablet 11 No current facility-administered medications for this visit. Allergies As of Date: 08/27/2024 (No Known Allergies) Fully Assessed 08/27/2024 Does patient have penicillin allergy: No REVIEW OF SYSTEMS: GENERAL: Negative for: Fever or Chills and Positive for: Fatigue HEENT: Negative for: Headache, Impaired Vision, Ringing in Ears, Nosebleeds NECK: Negative for: Swelling, Pain, Stiffness RESPIRATORY: Negative for: Cough, Shortness of breath, Wheezing GASTROINTESTINAL: Negative for: Heartburn, Constipation, Diarrhea, Blood in stool, Vomiting and Positive for: Nausea and Vomiting MUSCULOSKELETAL: Negative for: Muscle or joint pain, stiffness, Joint swelling NEUROLOGIC/PSYCHIATRIC: Negative for: Weakness, Paralysis, Numbness, Tingling, Tremor, Anxiety, Depression, Memory loss SKIN: Negative for: Rash, Itching GENITOURINARY: Negative for: vaginal itching, vaginal discharge, hematuria or dysuria and Positive for: urinary frequency SENSITIVE EXAM: The sensitive examination was discussed with the Patient or Patient's Authorized Customer Service Cashier. As applicable, any other physician, advance practice provider, medical student, or other health professional student that will be observing or involved in the sensitive examination for educational or training purposes was discussed with the Patient or Authorized Customer Service Cashier. The Patient or Authorized Customer Service Cashier has agreed to proceed with the sensitive examination. (Sensitive examination includes inspection and/or palpation of the breasts, pelvis, prostate and anorectal regions). PHYSICAL EXAM: BP 120/68 Ht 5' 1 (1.55m) Wt 167 lb (75.8kg) LMP 03/08/2024 BMI 31.57 kg/(m^2). GENERAL: pleasant in no apparent distress DERMATOLOGY: Normal and without lesions NECK: Supple and full range of motion CHEST: Normal inspiratory effort BREAST: soft, non-tender, symmetric, no dominant mass, normal nipple-areolar complex, no lymphadenopathy, no nipple discharge, and fibrocystic changes ABDOMEN: soft, non-tender, and no masses NEURO: alert and oriented x3,exam grossly non-focal PELVIS: External genitalia normal without lesions. No adnexal masses or tenderness. Clinical Pelvimetry: Pelvimetry clinically assessed as adequate ASSESSMENT: 23 year old at 24w4d wks gestational age PLAN: 1) Patient oriented to practice. Discussed nutrition, folic acid supplementation, dietary guidelines, exercise, smoking, alcohol, caffeine, and drug use. Discussed gestational weight gain guidelines. Discussed routine OB labs including STD/HIV. 2) Screening: Hemoglobin A1C: ordered Baby Aspirin: The patient has been counseled about the potential benefits of low dose aspirin in and our recommendation that this be offered to all patients, regardless of whether they meet the high risk criteria specified above. She Accepts Aneuploidy Screening: Discussed aneuploidy screening, nuchal translucency/first trimester early anatomy ultrasound and NIPT. The risks/benefits and limitations of NIPT/aneuploidy screening were reviewed including the potential for false negative and false positive results. The availability of genetic counseling was reviewed. Information on aneuploidy screening was provided. The patient declines screening Myriad Carrier Screening: Discussed myriad carrier screening. We discussed the availability of professional-society guided carrier screening and reviewed the conditions screened and limitations of screening. The availability of genetic counseling was reviewed. Information on carrier screening was provided. The patient Declines 3) Patient offered option of Virtual Visits. Patient prefers in person visits. Follow up in [facility] for dating Ultrasound and 2 weeks for [place]OOK[place]N Morales APRN.CNM documented in this encounter [facility] 08-27-2024 Nicholas Lima MA - 08/27/2024 1:05 PM EDT Please select the following link to access the [facility] Your Guide to a Healthy . [email or web address] de documented in this encounter [facility] Evaluation note Diagnosis with uncertain dates, second trimester (HCC)- Primary Late care ([facility]) Insufficient care 24 weeks gestation of (HCC) state, incidental Uterine size-date discrepancy, second trimester ([facility]) Language barrier Social maladjustment Encounter for supervision of high risk in second trimester, antepartum ([facility]) Anxiety and depression Dysthymic disorder [facility] Diagnosis Encounter for supervision of high risk in second trimester, antepartum (HCC)- Primary Anemia complicating , second trimester ([facility]) Screening for diabetes mellitus Encounter for supervision of other normal in second trimester ([facility]) 26 weeks gestation of ([facility]) state, incidental * Assessment & Plan Note - Luz Huizar MD - 09/10/2024 8:23 AM EDT Associated Problem(s): Encounter for supervision of high risk in second trimester, antepartum ([facility]) * Assessment & Plan Note - Luz Huizar MD - 09/10/2024 8:23 AM EDT Associated Problem(s): Anemia complicating , second trimester ([facility]) Will start iron supplement Orders: ferrous sulfate 325 mg (65 mg iron) tablet; Take 1 tablet by mouth once daily. [facility] Diagnosis Encounter for supervision of high risk in second trimester, antepartum (HCC)- Primary Anemia complicating , second trimester ([facility]) Screening for diabetes mellitus Encounter for supervision of other normal in second trimester ([facility]) 26 weeks gestation of (HCC) state, incidental 31 weeks gestation of (HCC)- Primary state, incidental Language barrier Social maladjustment Late care (HCC) Insufficient care Anemia complicating , second trimester (HCC) Need for vaccination Need for prophylactic vaccination and inoculation against unspecified single disease documented in this encounter [facility] note* Diagnosis Encounter for supervision of high risk in second trimester, antepartum (HCC)- Primary Anemia complicating , second trimester ([facility]) Screening for diabetes mellitus Encounter for supervision of other normal in second trimester (HCC) 26 weeks gestation of ([facility]) state, incidental 33 weeks gestation of ([facility])- Primary state, incidental Encounter for supervision of normal first in third trimester ([facility]) Supervision of normal first Language barrier Social maladjustment documented in this encounter [facility] note* Diagnosis Encounter for supervision of high risk in second trimester, antepartum ([facility])- Primary Anemia complicating , second trimester ([facility]) Screening for diabetes mellitus Encounter for supervision of other normal in second trimester ([facility]) 26 weeks gestation of ([facility]) state, incidental Supervision of high risk in third trimester ([facility])- Primary Unspecified high-risk Language barrier Social maladjustment Anemia during in third trimester ([facility]) Encounter for supervision of high risk in second trimester, antepartum (HCC) Late care ([facility]) Insufficient care Anemia complicating , second trimester ([facility]) documented in this encounter [facility] note* Diagnosis Encounter for supervision of high risk in second trimester, antepartum (HCC)- Primary Anemia complicating , second trimester ([facility]) Screening for diabetes mellitus Encounter for supervision of other normal in second trimester ([facility]) 26 weeks gestation of ([facility]) state, incidental Supervision of high risk in third trimester ([facility])- Primary Unspecified high-risk Language barrier Social maladjustment Anemia during in third trimester ([facility]) Encounter for supervision of high risk in second trimester, antepartum ([facility]) * Assessment & Plan Note - Jacquelyn Stewart MD - 10/14/2024 1:26 PM EDT Associated Problem(s): Encounter for supervision of high risk in second trimester, antepartum ([facility]) * Assessment & Plan Note - Jacquelyn Stewart MD - 10/14/2024 1:26 PM EDT Associated Problem(s): Language barrier phone conciliator services used * Assessment & Plan Note - Jacquelyn Stewart MD - 10/14/2024 1:26 PM EDT Associated Problem(s): Anemia during in third trimester (HCC) (Resolved 10/14/2024) recommend Fe and PNV documented in this encounter [facility] note* Diagnosis Anemia complicating , second trimester (HCC)- Primary Encounter for supervision of high risk in second trimester, antepartum ([facility])- Primary Anemia complicating , second trimester ([facility]) Screening for diabetes mellitus Encounter for supervision of other normal in second trimester ([facility]) 26 weeks gestation of ([facility]) state, incidental Supervision of high risk in third trimester (HCC)- Primary Unspecified high-risk Language barrier Social maladjustment Anemia during in third trimester ([facility]) Encounter for supervision of high risk in second trimester, antepartum ([facility]) documented in this encounter [facility] note* Diagnosis Encounter for supervision of high risk in second trimester, antepartum (HCC)- Primary Anemia complicating , second trimester ([facility]) Screening for diabetes mellitus Encounter for supervision of other normal in second trimester (HCC) 26 weeks gestation of ([facility]) state, incidental Supervision of high risk in third trimester (HCC)- Primary Unspecified high-risk Language barrier Social maladjustment Anemia during in third trimester (HCC) Encounter for supervision of high risk in second trimester, antepartum ([facility]) Supervision of high risk in third trimester (HCC)- Primary Unspecified high-risk 36 weeks gestation of ([facility]) state, incidental Language barrier Social maladjustment Anemia during in third trimester (HCC) Late care (HCC) Insufficient care Anxiety and depression Dysthymic disorder Anemia complicating , second trimester ([facility]) documented in this encounter [facility] note* Diagnosis Encounter for supervision of high risk in second trimester, antepartum ([facility])- Primary Anemia complicating , second trimester ([facility]) Screening for diabetes mellitus Encounter for supervision of other normal in second trimester ([facility]) 26 weeks gestation of ([facility]) state, incidental Supervision of high risk in third trimester ([facility])- Primary Unspecified high-risk Language barrier Social maladjustment Anemia during in third trimester ([facility]) Encounter for supervision of high risk in second trimester, antepartum ([facility]) 38 weeks gestation of ([facility])- Primary state, incidental Supervision of high risk in third trimester ([facility]) Unspecified high-risk Language barrier Social maladjustment Anemia during in third trimester ([facility]) documented in this encounter [facility] note* Diagnosis Encounter for supervision of high risk in second trimester, antepartum ([facility])- Primary Anemia complicating , second trimester ([facility]) Screening for diabetes mellitus Encounter for supervision of other normal in second trimester ([facility]) 26 weeks gestation of ([facility]) state, incidental Supervision of high risk in third trimester ([facility])- Primary Unspecified high-risk Language barrier Social maladjustment Anemia during in third trimester ([facility]) Encounter for supervision of high risk in second trimester, antepartum ([facility]) Supervision of high risk in third trimester ([facility])- Primary Unspecified high-risk Anemia during in third trimester ([facility]) 39 weeks gestation of ([facility]) state, incidental documented in this encounter [facility] note* Diagnosis Encounter for supervision of high risk in second trimester, antepartum ([facility])- Primary Anemia complicating , second trimester ([facility]) Screening for diabetes mellitus Encounter for supervision of other normal in second trimester ([facility]) 26 weeks gestation of ([facility]) state, incidental Abnormal glucose in , antepartum ([facility])- Primary Abnormal maternal glucose tolerance, antepartum Anemia during in third trimester ([facility]) Supervision of high risk in third trimester ([facility])- Primary Unspecified high-risk Language barrier Social maladjustment Anemia during in third trimester ([facility]) Encounter for supervision of high risk in second trimester, antepartum ([facility]) documented in this encounter [facility] note* Diagnosis Encounter for supervision of high risk in second trimester, antepartum (HCC)- Primary Anemia complicating , second trimester (HCC) Screening for diabetes mellitus Encounter for supervision of other normal in second trimester (HCC) 26 weeks gestation of (HCC) state, incidental Abnormal glucose in , antepartum (HCC)- Primary Abnormal maternal glucose tolerance, antepartum Supervision of high risk in third trimester (HCC)- Primary Unspecified high-risk Language barrier Social maladjustment Anemia during in third trimester (HCC) Encounter for supervision of high risk in second trimester, antepartum (HCC) [facility]* Financial Clearance (Routine) - Authorized Specialty Diagnoses / Procedures Referred By Linus gomez Referred To Contact Diagnoses Office visit Procedures Office visit [facility] [address] [place] [address] Phone: tel: [place] [phone] Referral ID Status Reason Start Date Expiration Date Visits Requested Visits Authorized [id number] Authorized Patient Cleared - Qualified 100% FAS 08/26/2024 11/24/2024 99 99 [facility] Advance Directives Date Activated Date Inactivated Comments 12/19/2022 4:04 AM 12/20/2022 6:44 PM Question Answer Comments Full Code Order Discussed With: Patient Date Activated Date Inactivated Comments 12/19/2022 4:04 AM 12/20/2022 6:44 PM Question Answer Comments Full Code Order Discussed With: Patient Summary Purpose Family History No Family History Records Found Additional Source Comments Source Comments (unrecognize d section and content) In the event this informatio n is protected by the Federal Confidentiality of Alcohol and Drug Abuse Patient Records regulations: The Federal rules restrict any use of the information to criminally investigate or prosecute any alcohol or drug abuse patient.[facility] the event this information is protected by the Federal Confidentiality of Alcohol and Drug Abuse Patient Records regulations: The Federal rules restrict any use of the information to criminally investigate or prosecute any alcohol or drug abuse patient.[facility] Hospital[facility] the event this information is protected by the Federal Confidentiality of Alcohol and Drug Abuse Patient Records regulations: The Federal rules restrict any use of the information to criminally investigate or prosecute any alcohol or drug abuse patient.[facility] Hospital[facility] the event this information is protected by the Federal Confidentiality of Alcohol and Drug Abuse Patient Records regulations: The Federal rules restrict any use of the information to criminally investigate or prosecute any alcohol or drug abuse patient.[facility] HospitalIn the event this information is protected by the Federal Confidentiality of Alcohol and Drug Abuse Patient Records regulations: The Federal rules restrict any use of the information to criminally investigate or prosecute any alcohol or drug abuse patient.[facility] HospitalIn the event this information is protected by the Federal Confidentiality of Alcohol and Drug Abuse Patient Records regulations: The Federal rules restrict any use of the information to criminally investigate or prosecute any alcohol or drug abuse patient.[facility] HospitalIn the event this information is protected by the Federal Confidentiality of Alcohol and Drug Abuse Patient Records regulations: The Federal rules restrict any use of the information to criminally investigate or prosecute any alcohol or drug abuse patient.[facility] HospitalIn the event this information is protected by the Federal Confidentiality of Alcohol and Drug Abuse Patient Records regulations: The Federal rules restrict any use of the information to criminally investigate or prosecute any alcohol or drug abuse patient.[facility] HospitalIn the event this information is protected by the Federal Confidentiality of Alcohol and Drug Abuse Patient Records regulations: The Federal rules restrict any use of the information to criminally investigate or prosecute any alcohol or drug abuse patient.[facility] HospitalIn the event this information is protected by the Federal Confidentiality of Alcohol and Drug Abuse Patient Records regulations: The Federal rules restrict any use of the information to criminally investigate or prosecute any alcohol or drug abuse patient.[facility] HospitalIn the event this information is protected by the Federal Confidentiality of Alcohol and Drug Abuse Patient Records regulations: The Federal rules restrict any use of the information to criminally investigate or prosecute any alcohol or drug abuse patient.[facility] HospitalIn the event this information is protected by the Federal Confidentiality of Alcohol and Drug Abuse Patient Records regulations: The Federal rules restrict any use of the information to criminally investigate or prosecute any alcohol or drug abuse patient.[facility] HospitalIn the event this information is protected by the Federal Confidentiality of Alcohol and Drug Abuse Patient Records regulations: The Federal rules restrict any use of the information to criminally investigate or prosecute any alcohol or drug abuse patient.[facility] Reason for Visit (unrecogniz ed section and content) Reason Onset Date Comments Care 11/19/2024 Specialty Diagnoses / Procedures Referred By Contac t Referred To Contact Diagnoses Office visit Procedures Office visit [facility] LUIS ENRIQUEMabel [address] [place] [address] Phone: tel: [facility] [address] Referral ID Status Reason Start Date Expiration Date Visits Requested Visits Authorized [id number] Authorized Patient Cleared - Qualified 100% FAS 08/26/2024 11/24/2024 99 99 Reason Onset Date Comments Care 11/11/2024 Reason Onset Date Comments Care 2024 Reason Onset Date Comments Care 09/10/2024 Reason Onset Date Comments Care 09/23/2024 Specialty Diagnoses / Procedures Referred By Geoffreyac t Referred To Contact Diagnoses Consult, test and treat Procedures [facility] [address] [place] [address] Phone: tel: [facility] [address] Referral ID Status Reason Start Date Expiration Date Visits Requested Visits Authorized [id number] Authorized Patient Cleared - Qualified 100% FAS 07/30/2024 2024 99 99 Reason Onset Date Comments Care 10/07/2024 Reason Comments US Specialty Diagnoses / Procedures Referred By Linus t Referred To Contact [facility] Diagnoses Late care (HCC) Anemia complicating , second trimester (HCC) Procedures OBSTETRIC ULTRASOUND WHI US PREG UTERUS AFTER 1ST TRIMEST GESTATION Shakila Morales APRN.[facility] [address] [place] [place] [address] Phone: tel: fax: [facility] [address] [place] [address] Referral ID Status Reason Start Date Expiration Date Visits Requested Visits Authorized [id number] Pending Review Auto-Generat ed Referral 09/23/2024 09/23/2025 5 5 Reason Comments Care INFORMATION SOURCE (unrecogn ized section and content) DATE CREATED AUTHOR 11/28/2024 [facility] FOR RECORDS PERTAINING TO PATIENTS WHO ARE OR HAVE BEEN ENROLLED IN A CHEMICAL DEPENDENCY/SUBSTANCEABUSE PROGRAM, SOME INFORMATION MAY BE OMITTED. This clinical summary was aggregated from multiple sources. Caution should be exercised in using it in the provision of clinical care. This summary normalizes information from multiple sources, and as a consequence, information in this document may materially change the coding, format and clinical context of patient data. In addition, data may be omitted in some cases. CLINICAL DECISIONS SHOULD BE BASED ON THE PRIMARY CLINICAL RECORDS. [facility] [employer] [facility]. provides no warranty or guarantee of the accuracy or completeness of information in this document.
--- NOTE | 2024-12-03 03:00 | PCM.HP.OB ---
HPI - General General Date of Admission: 12/03/24 HPI Narrative OSCAR CHILDS, is a 24 F at 41.4 weeks gestation who presents with contractions. She was scheduled for induction of labor later this morning. Maternal Data Information WILMAN Calculator Estimated Delivery Date Method Current WG Current Estimate 11/22/24 Manual 41w 4d PFSH PFS Medical History (Updated 12/03/24 @ 05:35 by Meghann Camarillo) macrosomia Home Medications ?Medication ?Instructions ?Recorded ?Last Taken ?Type vit no.95-ferrous 1 tab PO DAILY 12/03/24 Unknown History fumarate 28 mg-folic acid 800 mcg tablet () Allergy/AdvReac Type Severity Reaction Status Date / Time No Known Drug Allergies Allergy Other Verified 12/03/24 03:35 Social History Smoking Status: Never smoker History Elective abortions Hx Para 1 Spontaneous abortions Hx # Term Pregnancies Ectopic pregnancies Hx # Pregnancies Multiple births # of living children ROS Eyes Eyes: Denies blurry vision, change in vision or spots in vision ENT HEENT: Denies dizziness or headache(s) Cardiovascular Cardiovascular: Denies abdominal pain, chest pain or dyspnea Respiratory/Chest Respiratory/Chest: Denies cough, dyspnea, shortness of breath at rest or shortness of breath with exertion Gastrointestinal Gastrointestinal: Denies abdominal pain, diarrhea or vomiting Genitourinary Genitourinary: Denies change in urinary stream, difficulty urinating or dysuria Musculoskeletal Musculoskeletal: Reports none Integumentary Integumentary: Denies rash Neurologic Neurologic: Denies dizziness, headache(s), memory loss or weakness Psychiatric Psychiatric: Reports none Physical Exam Const alert, oriented x3 and no apparent distress General Appearance: cooperative Orientation / Consciousness: awake Exam Limitations: no limitations HEENT normocephalic Head and Scalp: normal to inspection Eyes General Eye: normal appearance of both eyes Neck full ROM and no lymphadenopathy Lymph Lymphatic: no lymphadenopathy noted Chest inspection of chest normal Resp normal respiratory effort, normal air movement and clear to auscultation bilaterally Effort and Inspection: able to speak in complete sentences and symmetric chest movement Cardio regular rate and regular rhythm GI normal to inspection, nondistended, normoactive bowel sounds Manual OB Exam: presentation cephalic Back/Spine normal ROM Extremity full ROM and no calf tenderness Skin no rashes or lesions noted General Skin Exam: no breakdown Neuro oriented x3 and CN's II-XII intact bilaterally Psych mental status grossly normal and thought process normal Labs Labs Labs: Blood Type O POSITIVE Antibody Screen NEGATIVE Hct 33.4 % (37-47) L Hgb 11.5 g/dL (12.0-15.0) L Syphilis Total Ab Nonreactive (Nonreactive) Assessment & Plan (1) 41 weeks gestation of : (2) Post term at 41 weeks gestation: (3) Language barrier: (4) Late care affecting : (5) LGA (large for gestational age) fetus: COMMENT: EFW 4127gm PLAN: Plan Admit to L&D Routine labs GBS positive- start PCN IV protocol Requesting epidural Patient offered primary section for suspected LGA baby- declined Dr. Hill notified of admission and is collaborating physician
[2024-12-03] MEDS: 0.9% Saline Lock 10 ML Syringe IV (04:05)
[2024-12-03] MEDS: Lactated Ringers 1,000 ML 50 ML IV (04:05)
[2024-12-03 04:19] LABS: Hematocrit 33.4 % (37-47); Hemoglobin 11.5 g/dL (12.0-15.0); Immature Granulocytes Count 0.110 X10^3/uL (0.0-0.0); Mean Corp Hgb Conc 34.4 g/dL (32-36); Mean Corpuscular Volume 82.9 fL (81-99); Mean Platelet Vol. 10.5 fl (6.2-12.0); NRBC Flagged by Analyzer 0 % (0-5); Platelet Count 211 K/mm3 (150-450); RBC Distribution Width CV 13.6 % (11.6-14.6); RBC Distribution Width SD 41.3 fl (35.1-43.9); Red Blood Count 4.03 M/mm3 (4.2-5.4); White Blood Count 8.9 K/mm3 (4.4-11.0)
[2024-12-03 04:50] LABS: Syphilis Antibodies Nonreactive (Nonreactive)
[2024-12-03] MEDS: Penicillin G Pot 5,000,000 UNITS in 0.9% Normal Saline (100mL MB+) 100 ML 150 UNITS IV (04:58)
[2024-12-03] MEDS: Lactated Ringers 1,000 ML 999 ML IV (07:11)
[2024-12-03] MEDS: fentaNYL-bupivacaine (epidural) 100 ML BAG EPIDURAL (08:12)
[2024-12-03] MEDS: Penicillin G 3,000,000 Units 50 ML 100 UNITS IV (09:08)
[2024-12-03] MEDS: Oxytocin 15 Units/NS 250ml 15 UNITS/250 ML IV.SOLN 334 UNITS IV (10:50)
--- NOTE | 2024-12-03 11:07 | OB.VAGDELI_ITS ---
Assessment & Plan (1) 41 weeks gestation of : (2) Late care affecting : QUALIFIERS: Trimester: third trimester Qualified Code(s): O09.33 - Supervision of with insufficient care, third trimester (3) Language barrier: (4) (spontaneous vaginal delivery): Maternal Data Information WILMAN Calculator Estimated Delivery Date Method Current WG Current Estimate 11/22/24 Manual 41w 4d Gestational age: 41+4 Vaginal Delivery Maternal Presentation Maternal Presentation: Active Labor Vaginal Delivery Information Procedure Performed: Spontaneous Vaginal Delivery Surgeon/Practitioner: Celia Boss Date of Procedure: 12/03/24 Pre-Procedure Diagnosis: labor Post-Procedure Diagnosis: Type of anesthesia: Epidural Estimated Blood Loss: 200 Time of Delivery: 10:47 Findings Description of procedure: Presented in active labor. Received epidural. Once comfortable her bladder was emptied for 500 cc and she quickly progressed to complete. Membranes were still intact. She did receive 2 doses of PCN. Arom at complete and began pushing. Patient delivered the vertex over an intact perineum. The shoulders delivered easily followed by the rest of the body. The cried upon delivery and was placed on the maternal abdomen. The cord was clamped after one minute. Cord blood was collected. The placenta delivered with gentle traction. There was a 2nd degree perineal laceration that was repaired with 2-0 Vicryl. All sponge, needle and instrument counts were correct Presentation: Vertex and MAIXMILIANO Amniotic Membrane Rupture Type: Artificial Amniotic Fluid Description: Clear Placental Delivery Description: Spontaneous Placenta Disposition: [facility] Specimen collected: No Cord Vessel Description: 3 Vessels Cord Entanglement: None Infant A Gender: Female (1 minute): 8 (5 minute): 9 Delayed Cord Clamping: Yes Material Handling Crew Supervisor training officer: No Post Vaginal Deli Medications given after delivery: IV Pitocin Episiotomy Description: None Laceration: Midline and 2nd degree Complication Complications: No
[2024-12-03] MEDS: Oxytocin 15 Units/NS 250ml 15 UNITS/250 ML IV.SOLN 83 UNITS IV (11:20)
--- NOTE | 2024-12-03 12:21 | NURSING ---
Instructed on diaper changes and safe sleep per FOB translating. Verbalize understanding. Written materials given in danish.
[2024-12-04 04:11] VITALS: BP 131/74; PULSE 94; RESP 16; O2SAT 98
--- NOTE | 2024-12-04 07:56 | PCM.PN.OB ---
Subjective Subjective Doing well. Ambulating and voiding without difficulty. Mild lochia. Bottle feeding. Objective Data Objective Data Vital Signs: Vital Signs Temp Pulse Resp BP Pulse Ox O2 Del Method 98.0 F 94 16 131/74 H 98 Room Air 12/03/24 23:39 12/04/24 04:11 12/04/24 04:11 12/04/24 04:11 12/04/24 04:11 12/04/24 04:11 Oxygen Delivery Method Room Air Weight: 86.908 kg Body Mass Index (BMI) 36.1 Intake & Output: Intake and Output for Last 24 Hours 12/02/24 12/03/24 12/04/24 23:59 23:59 23:59 Intake Total 2292.42 / 2292.42 Output Total 900 / 900 Balance 1392.42 / 1392.42 Lab / Micro Data 12/03/24 04:05 ROS Constitutional Constitutional: Denies headache(s) Cardiovascular Cardiovascular: Denies chest pain or dyspnea Gastrointestinal Gastrointestinal: Denies nausea or vomiting Genitourinary Genitourinary: Denies dysuria Physical Exam Const alert, oriented x3 and no apparent distress General Appearance: cooperative and comfortable Eyes PERRL and EOMs intact bilaterally Resp normal respiratory effort GI soft to palpation and non-tender Narrative: Fundus firm, below umbilicus. Uterus Palpation: uterus fundus firm ( below umbilicus) Extremity normal to inspection and full ROM Neuro oriented x3 and CN's II-XII intact bilaterally Psych mental status grossly normal Assessment & Plan (1) (spontaneous vaginal delivery): (2) Language barrier: PLAN: Health Science Instructor scheduled for 10 am. PLAN: Plan Possible discharge today May need Nexplanon placed in office
[2024-12-04 09:15] VITALS: BP 121/76; PULSE 73; RESP 14; TEMP 36.1; O2SAT 99
[2024-12-04 14:50] VITALS: BP 124/81; PULSE 82; RESP 14; TEMP 36.4; O2SAT 100
[2024-12-04 21:11] VITALS: BP 139/89; PULSE 87; RESP 16; TEMP 36.4; O2SAT 98
--- NOTE | 2024-12-09 11:37 | CASEMGMT ---
Social Work Assessment Labor and Delivery Unit Patient Address: [address] [place] [address] Phone number: [phone] Date of Referral: 12/04/24 Time of Referral:? [id number] Referred By: Dr. Hernandez Date of Intervention: ?12/04/24 Time of Intervention:? 1444 Reason for Referral:? Kiche' speaking, need assistance with transportation Sw completed chart review and acknowledges social work consult. Nursing staff informed sw that using available translating services have not been beneficial. Sw reached out to mutual service provider at [facility] who has also been working with patient, Ainsley Mendoza, and she was able to use her television reporter services ([employer]) in order to help in completion with psychosocial assessment and other medical providers in assisting patient. History obtained from: medical records, MOB and FOB Household composition: MOB states that currently residing in their family home is herself, father of baby (ISAÍAS Chaidez), their almost two year old daughter, Aneta. MOB denies any problems or concerns with their home, stating that it is safe and secure. Patient's parent/guardian status:? When asked this question, MOB smiled and laughed. MOB states that they met through the phone. Sw asked for clarification, and MOB stated that they knew each other when they both still resided in [facility]. MOB states that MAGUE moved to [place] before she did, so he would call her from [place] and talk to her on the phone and then she moved here to live with him. They have now been together for four years. Inez baby is their second child together. No concerns reported of domestic violence or intimate partner violence. ? Medical History: KEVIN is 24 year old female who is 2, para 1- now 2 following labor and delivery of . KEVIN had delayed care, beginning in the second trimester with [facility]. KEVIN presented to hospital at 41 weeks gestation and delivered baby via vaginal delivery on 12/03/24. MOB states that she is bottle feeding baby and baby will be followed by Dr. Cesar for pediatrics. Ainsley from [facility] assisted MOB on getting scheduled well check appointment scheduled for baby on Saturday12/07/24. Baby girl, named Juanis Corado, was born weighing 8lb 4oz with apgars of 8 and 9 at one and five minutes of life, respectfully. ? Educational Status:? Both parents graduated from school in [place] that is equivalent to our 8th grade. Parents are able to read and write, some [place], but prefer [place] . Financial Status: MAGUE is employed outside of the home doing odd jobs in construction or concrete. KEVIN is not employed and is the primary caregiver to and her older sister. Supplies:??All necessary baby supplies obtained, including: car seat, safe sleep space, clothes, diapers and wipes. Childcare/Caregiver(s):?MOB will be the primary caregiver. Transportation:?? MBO states that MAGUE drives and helps her get where she needs to go. Programs/Agencies Involved: Parents are connected to supports provided through [facility] (population health and community health workers)??? Children Services/Legal Issues:???No prior involvement with children services, no issues or concerns warranting referral to be made at this time. Behavioral Health Issues: ??Mental Health History:?MAGUE denies mental health history. KEVIN states that she did have some anxiety after her first daughter was born. MOB states that she felt sad and would cry. MOB states that it did not last long, but she is worried about experiencing it following this delivery. MOB states that she feels alone. Substance Use History:?Parents deny substance use history prior to and during . ? Family History:??Parents deny family history of substance use or significant mental health history. ??? Drug Screens: No drug screens observed while completing chart review. ?? Family/Social Stressors:? Current stressors include that parents are immigrants and not connected to financial resources as are limited due to legal status. They are receiving supports from Community supports provided through [facility] that is assisting with medical appointments and ensuring parents are connected to those necessary appointments.MAGUE is employed and KEVIN stays at home. KEVIN has been able to obtain all necessary baby items with the assistance from the community health worker at [facility]. Chief Yeoman services are limited due to access to an appropriate [place] home security alarm installer. Support Systems: KEVIN states that MAGUE is her biggest support. KEVIN also has support from MAGUE's cousin who lives close by, as well as her population health worker at [facility]. Depression/Shaken Baby/Safe Sleeping:? Sw educated parents on signs and symptoms of baby blues and depression and anxiety. MOB states that at this time she feels like herself, she denies feeling down, sad, tearful or anxious. MOB states that she may feel loneliness when she goes home and does not have family here to help her with baby. FOB states that if MOB were to struggle with her mental health he would be able to recognize that and would know how to help her. MOB states that he is her biggest support and would be able to assist her. MOB states that she does feel comfortable talking to her OBGYN about how she is feeling as well. Sw educated parents on shaken baby prevention and ABCs of safe sleep. Parents express understanding. ASSESSMENT:? MOB and baby admitted following labor and delivery. MOB sat on bed comfortably while answering questions asked by sw. When using the home security alarm installer, it is difficult to have a flowing conversation, it is more yes or no questions, MOB does not elaborate on answers. MOB did appear to be welcoming of sw interaction and support, as well as FOB. FOB was observed to hold baby and feed her appropriately. MOB reports to have a connection with baby. MOB was connected to community resources that helped her obtain all necessary baby items. MOB did not receive routine care, so the importance of taking baby to routine well check appointments was explained to her. MOB expressed understanding. PLAN:? No other services requested or indicated. MOB and baby to be discharged when medically ready. Parents were provided literature regarding: signs and symptoms of baby blues and mood and anxiety disorders, Help Me Grow, shaken baby prevention, ABCs of safe sleep and a list of county resources that are available for them should any needs present themselves. Colette Perdomo, ENTRY LEVEL JAVA DEVELOPER, MEDICATION COORDINATOR
== END 2024-12-04 21:46 | disposition home or self-care (01) | DRG 806 ==
PROVIDERS: Admitting Provider Advanced Practice Midwife; Visit Provider Obstetrics & Gynecology
DX: O48.0 Post-term pregnancy (principal); Z37.0 Single live birth; O98.82 Other maternal infectious and parasitic diseases complicating childbirth; B95.1 Streptococcus, group B, as the cause of diseases classified elsewhere; O70.1 Second degree perineal laceration during delivery; Z3A.41 41 weeks gestation of pregnancy; Z60.3 Acculturation difficulty
CPT/HCPCS: 59025; 59050; 85025; 86780; 86850; 86900; 86901; 99221; A4216; G0378